=== PATIENT | female | born 2000 | race Asian ===

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

== ENCOUNTER 2018-01-30 03:53 | Emergency (ER) | payer OTHER ==
--- NOTE | 2018-01-30 03:58 | ED Physician Documentation ---
PD HPI FEMALE - Stated complaint Stated Complaint: FEMALE - History obtained from History obtained from: Patient - History of Present Illness Timing - onset: How many hours ago (1) Timing - details: Abrupt onset Associated symptoms: Vaginal pain. 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 Denies h/o similar symptoms. Review of Systems Constitutional: denies: Fever GI: reports: Reviewed and negative : denies: Dysuria, Frequency, Discharge, Vaginal bleeding Musculoskeletal: denies: Back pain PD PAST MEDICAL HISTORY - Past Medical History Past Medical History: No - Past Surgical History Past Surgical History: Yes HEENT: Tonsil/Adenoidectomy - Present Medications Home Medications: Ambulatory Orders Medication Instructions Recorded Confirmed Nitrofurantoin [Macrobid] 100 mg PO BID #9 capsule 01/30/18 Phenazopyridine [Pyridium] 200 mg PO TID 3 Days tablet 01/30/18 - Allergies Allergies/Adverse Reactions: Allergies Allergy/AdvReac Type Severity Reaction Status Date / Time No Known Drug Allergies Allergy Verified 01/30/18 04:12 - Social History Does the pt smoke?: No Smoking Status: Never smoker Does the pt drink ETOH?: No Does the pt have substance abuse?: No - Immunizations Immunizations are current?: Yes - POLST Patient has POLST: No PD ED PE NORMAL - Vitals Vital signs reviewed: Yes - General General: Alert and oriented X 3, No acute distress, Well developed/nourished - Abdomen Abdomen: Soft, Non tender - Back Back: No CVA TTP Results - Vitals Vitals: Vital Signs - 24 hr 01/30/18 04:00 Temperature 35.9 C L Heart Rate 119 H Respiratory 16 Rate Blood Pressure 135/85 H O2 Saturation 98 Oxygen O2 Source Room air - Labs Labs: Laboratory Tests 01/30/18 04:00 Urine Color YELLOW Urine Clarity HAZY Urine pH 6.0 Ur Specific [place] >=1.030 H Urine Protein NEGATIVE Urine Glucose (UA) NEGATIVE Urine Ketones NEGATIVE Urine Occult Blood SMALL H Urine Nitrite POSITIVE H Urine Bilirubin NEGATIVE Urine Urobilinogen 0.2 (NORMAL) Ur Leukocyte Esterase SMALL H Urine RBC 0-5 Urine WBC >25 H Ur Squamous Epith Cells FEW Squamous Urine Bacteria Many H Ur Microscopic Review INDICATED Urine Culture Comments INDICATED Urine HCG, Qual NEGATIVE PD MEDICAL DECISION MAKING - ED course Complexity details: considered differential, d/w patient - Sepsis Event Vital Signs: Vital Signs - 24 hr 01/30/18 04:00 Temperature 35.9 C L Heart Rate 119 H Respiratory 16 Rate Blood Pressure 135/85 H O2 Saturation 98 Oxygen O2 Source Room air Departure - Departure Disposition: Home, Self Care Clinical Impression: Urinary tract infection Condition: Good Instructions: ED UTI Cystitis Female Follow-Up: MONTY ANDERSON [Primary Care Provider] - (3-4 days if not improving) Prescriptions: Nitrofurantoin [Macrobid] 100 mg PO BID #9 capsule Phenazopyridine [Pyridium] 200 mg PO TID 3 Days tablet Discharge Date/Time: 01/30/18 05:03
[2018-01-30 04:04] VITALS: BP 135/85
[2018-01-30 04:16] LABS: BILIRUBIN,URINE NEGATIVE (NEGATIVE); GLUCOSE, URINE (UA) NEGATIVE (NEGATIVE); KETONES,URINE (UA) NEGATIVE (NEGATIVE); LEUKOCYTE ESTERASE, URINE SMALL (NEGATIVE); NITRITE,URINE POSITIVE (NEGATIVE); OCCULT BLOOD,URINE SMALL (NEGATIVE); PROTEIN,URINE NEGATIVE (NEGATIVE); UROBILINOGEN,URINE 0.2 (NORMAL) E.U./dL (NORMAL)
[2018-01-30 04:21] LABS: CLARITY,URINE HAZY (CLEAR); HCG UR QUAL NEGATIVE
[2018-01-30 04:26] LABS: BACTERIA,URINE Many /HPF (None Seen); RBC,URINE 0-5 /HPF (0-5); SQUAMOUS EPITHELIAL CELL,UR FEW Squamous (<= Few)
[2018-01-30] MEDS ORDERED: PHENAZOPYRIDINE 100 MG TABLET PO STA (04:52)
[2018-01-30] MEDS ORDERED: NITROFURANTOIN MACRO 100 MG CAPSULE PO STA (04:52)
== END 2018-01-30 05:03 | disposition home or self-care (01) ==
LOC: ED 03:53
DX: N39.0 Urinary tract infection, site not specified (principal)
CPT/HCPCS: 81001; 81025; 87077; 87086; 87181; 99283; A9270; 81003

== ENCOUNTER 2018-07-04 21:47 | Emergency (ER) | payer OTHER ==
[2018-07-04 21:54] VITALS: BP 120/80
[2018-07-04] MEDS ORDERED: DOXYCYCLINE 100 MG TABLET PO STA (22:20)
[2018-07-04] MEDS ORDERED: guaiFENesin/CODEINE 5 ML UDC PO STA (22:20)
--- NOTE | 2018-07-04 22:22 | ED Physician Documentation ---
PD HPI URI - Stated complaint Stated Complaint: COUGH/SORIANO/BLURRED VISION - Chief complaint Chief Complaint: Resp - History obtained from History obtained from: Patient - History of Present Illness Timing - onset: Other (She was sick for about 3 days about a week ago with cough cold and runny nose. She was improving but has taken a turn for the worse after over the last 24 hours with cough productive of green sputum with some blood and some shortness of breath. She is coughing so hard that her head hurts and she gets blurry vision when she is coughing but now when she is not coughing. No possibility of . No recent travel. 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 Psych: Panic attacks - Past Surgical History Past Surgical History: Yes HEENT: Tonsil/Adenoidectomy - Present Medications Home Medications: Ambulatory Orders Medication Instructions Recorded Confirmed Nitrofurantoin [Macrobid] 100 mg PO BID #9 capsule 01/30/18 Phenazopyridine [Pyridium] 200 mg PO TID 3 Days tablet 01/30/18 Doxycycline Hyclate 100 mg PO BID #14 capsule 07/04/18 guaiFENesin/CODEINE [Robitussin AC] 5 - 10 ml PO Q6H PRN #120 ml 07/04/18 - Allergies Allergies/Adverse Reactions: Allergies Allergy/AdvReac Type Severity Reaction Status Date / Time No Known Drug Allergies Allergy Verified 07/04/18 21:54 - Social History Does the pt smoke?: No Smoking Status: Never smoker Does the pt drink ETOH?: Yes Does the pt have substance abuse?: No - Immunizations Immunizations are current?: Yes - POLST Patient has POLST: No PD ED PE NORMAL - Vitals Vital signs reviewed: Yes - General General: Alert and oriented X 3, No acute distress - HEENT HEENT: Ears normal, Pharynx benign - Neck Neck: Supple, no meningeal sign, No bony TTP - Cardiac Cardiac: RRR, No murmur - Respiratory Respiratory: Other (Diminished at the bases without rhonchi or other focal findings.) - Abdomen Abdomen: Soft, Non tender - Derm Derm: No rash - Extremities Extremities: No edema, No calf tenderness / cord - Neuro Neuro: Alert and oriented X 3, Normal speech Results - Vitals Vitals: Vital Signs - 24 hr 07/04/18 21:51 Temperature 36.9 C Heart Rate 97 Respiratory 16 Rate Blood Pressure 120/80 O2 Saturation 98 Oxygen O2 Source Room air PD MEDICAL DECISION MAKING - ED course ED course: This is a 17-year-old with bronchitis and a story Worrisome for "double sickening" and as such she is treated with antibiotics. Departure - Departure Disposition: Home, Self Care Clinical Impression: Bronchitis Condition: Good Record reviewed to determine appropriate education?: Yes Instructions: ED Upper Resp Infec Abx Tx Prescriptions: Doxycycline Hyclate 100 mg PO BID #14 capsule guaiFENesin/CODEINE [Robitussin AC] 5 - 10 ml PO Q6H PRN #120 ml PRN Reason: Cough Comments: Call your doctor to arrange a follow-up appointment, make the next available appointment. In the interim, return anytime if worse or if new symptoms develop. Forms: Activity restrictions
== END 2018-07-04 22:28 | disposition home or self-care (01) ==
LOC: ED 21:47
DX: J40 Bronchitis, not specified as acute or chronic (principal)
CPT/HCPCS: 99283; A9270

== ENCOUNTER 2018-10-22 22:56 | Emergency (ER) | payer OTHER ==
--- NOTE | 2018-10-22 23:53 | ED Physician Documentation ---
PD HPI NVD - Stated complaint Stated Complaint: VOMITING BLOOD - Chief complaint Chief Complaint: Abd Pain - History obtained from History obtained from: Patient - History of Present Illness Timing - onset: How many days ago (5) Timing - details: Gradual onset, Intermittant Pain level max: 0 Pain level now: 0 Associated symptoms: No: Fever, Abdominal pain Improved by: Other (nothing) Worsened by: Other (no exacerbating factors) Similar symptoms before: Has not had sx before - Additonal information Additional information: rhinorrhea, generalized myalgias x 5 days. nausea with vomiting 2 days ago and again tonight. Review of Systems Constitutional: reports: Myalgias. denies: Fever, Chills, Sweats Nose: reports: Rhinorrhea / runny nose. denies: Congestion Throat: reports: Sore throat Respiratory: reports: Reviewed and negative GI: reports: Nausea (resolved), Vomiting. 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 Psych: Panic attacks - Past Surgical History Past Surgical History: Yes HEENT: Tonsil/Adenoidectomy - Present Medications Home Medications: Ambulatory Orders Medication Instructions Recorded Confirmed No Known Home Medications 10/22/18 10/22/18 - Allergies Allergies/Adverse Reactions: Allergies Allergy/AdvReac Type Severity Reaction Status Date / Time No Known Drug Allergies Allergy Verified 10/22/18 23:07 - Social History Does the pt smoke?: No Smoking Status: Never smoker Does the pt drink ETOH?: Yes Does the pt have substance abuse?: No - Immunizations Immunizations are current?: Yes - POLST Patient has POLST: No PD ED PE NORMAL - Vitals Vital signs reviewed: Yes - General General: Alert and oriented X 3, No acute distress, Well developed/nourished - HEENT HEENT: Moist mucous membranes, Other (mild/moderate posterior oropharyngeal erythema with mild swelling (symmetric)) - Neck Neck: Supple, no meningeal sign - Cardiac Cardiac: RRR, No murmur - Respiratory Respiratory: No respiratory distress, Clear bilaterally - Abdomen Abdomen: Soft, Non tender - Derm Derm: Normal color, Warm and dry Results - Vitals Vitals: Vital Signs - 24 hr 10/22/18 10/23/18 23:00 01:28 Temperature 36.5 C Heart Rate 92 85 Respiratory 16 16 Rate Blood Pressure 110/66 97/67 O2 Saturation 97 100 Oxygen O2 Source Room air - Labs Labs: Laboratory Tests 10/23/18 00:26 Group A Strep Rapid Negative PD MEDICAL DECISION MAKING - ED course Complexity details: reviewed results, re-evaluated patient, considered differential, d/w patient ED course: Patient declined zofran, says she is no longer nauseas. She thought there may have been blood in her vomitus tonight, but she also notes she ate pizza earlier this evening. She is well-appearing, denies blood in stool/dark black stool, and has not noticed blood in previous emesis. Vital signs stable. Blood tests unlikely to indicate a specific diagnosis or treatment in this young, healthy patient with only two episodes of vomiting, one with questionable blood. Patient prefers no blood tests unless necessary. Departure - Departure Disposition: 01 Home, Self Care Clinical Impression: Vomiting, Upper respiratory infection Condition: Good Instructions: ED URI Viral, ED Nausea Vomiting Forms: Activity restrictions Discharge Date/Time: 10/23/18 01:29
[2018-10-23] MEDS ORDERED: ONDANSETRON ODT 4 MG TABLET TL STA (00:16)
[2018-10-23 01:29] VITALS: BP 97/67
== END 2018-10-23 01:29 | disposition home or self-care (01) ==
LOC: ED 22:56
DX: J06.9 Acute upper respiratory infection, unspecified (principal); R11.10 Vomiting, unspecified
CPT/HCPCS: 87070; 87430; 99283

== ENCOUNTER 2019-02-10 15:38 | Emergency (ER) | payer OTHER ==
[2019-02-10] MEDS ORDERED: SODIUM CHLORIDE 0.9% 1,000 ML IV STA (16:53)
--- NOTE | 2019-02-10 16:53 | ED Physician Documentation ---
History of Present Illness - Stated complaint Stated Complaint: FEMALE /BLEEDING - Chief complaint Chief Complaint: Abd Pain - Additonal information Additional information: This is a 18-year-old female G2, P0 who presents with abdominal cramping and vaginal bleeding. Patient states that she was late on her period, her last menstrual cycle was 01/05/2019, and yesterday she began developing some lower abdominal cramping, followed by bleeding. She has been passing large clots. She states that she went through multiple pads in an hour intially, this has slowed down somewhat. She has had a history of a miscarriage and a stillbirth at 6 months of , she has not taken a test but she states it is possible that she might be . She has some nausea but no vomiting. No fever. Review of Systems Constitutional: denies: Fever Cardiac: denies: Chest pain / pressure Respiratory: denies: Dyspnea GI: reports: Abdominal Pain : reports: Vaginal bleeding. 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 Psych: Panic attacks - Past Surgical History Past Surgical History: Yes HEENT: Tonsil/Adenoidectomy - Present Medications Home Medications: Ambulatory Orders Medication Instructions Recorded Confirmed No Known Home Medications 10/22/18 10/22/18 - Allergies Allergies/Adverse Reactions: Allergies Allergy/AdvReac Type Severity Reaction Status Date / Time No Known Drug Allergies Allergy Verified 10/22/18 23:07 - Social History Does the pt smoke?: No Smoking Status: Never smoker Does the pt drink ETOH?: Yes Does the pt have substance abuse?: No - Immunizations Immunizations are current?: Yes - POLST Patient has POLST: No PD ED PE NORMAL - Vitals Vital signs reviewed: Yes - General General: Alert and oriented X 3 - HEENT HEENT: PERRL - Neck Neck: Supple, no meningeal sign - Cardiac Cardiac: RRR - Respiratory Respiratory: Clear bilaterally - Abdomen Abdomen: Soft, Other (Mild tenderness to palpation across the lower abdomen. No upper quadrant tenderness. No guarding) - Derm Derm: Warm and dry - Extremities Extremities: No deformity - Neuro Neuro: Alert and oriented X 3 - Psych Psych: Normal mood, Normal affect Results - Vitals Vitals: Vital Signs - 24 hr 02/10/19 02/10/19 02/10/19 16:02 16:43 18:54 Temperature 36.6 C Heart Rate 88 87 83 Respiratory 16 17 17 Rate Blood Pressure 129/97 H 103/67 115/83 H O2 Saturation 94 99 96 02/10/19 02/10/19 20:29 20:32 Temperature 37.2 C 37.2 C Heart Rate 80 80 Respiratory 18 18 Rate Blood Pressure 117/87 H 117/80 O2 Saturation 97 97 Oxygen O2 Source Room air - Labs Labs: Laboratory Tests 02/10/19 02/10/19 02/10/19 17:03 17:05 17:05 WBC 8.7 RBC 4.23 Hgb 12.9 Hct 37.1 MCV 87.7 MCH 30.5 MCHC 34.8 RDW 12.6 Plt Count 298 MPV 8.8 Neut # (Auto) 5.0 Lymph # (Auto) 2.8 Jay # (Auto) 0.6 Eos # (Auto) 0.2 Baso # (Auto) 0.0 Absolute Nucleated RBC 0.00 Nucleated RBC % 0.0 Sodium 141 Potassium 3.8 Chloride 107 Carbon Dioxide 24 Anion Gap 10.0 BUN 14 Creatinine 0.7 Estimated GFR (MDRD) 107 Glucose 89 Calcium 9.2 Total Bilirubin 0.3 AST 14 ALT 13 Alkaline Phosphatase 76 Total Protein 7.4 Albumin 4.0 Globulin 3.4 Albumin/Globulin Ratio 1.2 Lipase 21 L HCG, Quant < 0.60 Urine Color Urine Clarity Urine pH Ur Specific [place] Urine Protein Urine Glucose (UA) Urine Ketones Urine Occult Blood Urine Nitrite Urine Bilirubin Urine Urobilinogen Ur Leukocyte Esterase Urine RBC Urine WBC Ur Squamous Epith Cells Urine Bacteria Ur Microscopic Review Urine HCG, Qual 02/10/19 02/10/19 17:15 17:15 WBC RBC Hgb Hct MCV MCH MCHC RDW Plt Count MPV Neut # (Auto) Lymph # (Auto) Jay # (Auto) Eos # (Auto) Baso # (Auto) Absolute Nucleated RBC Nucleated RBC % Sodium Potassium Chloride Carbon Dioxide Anion Gap BUN Creatinine Estimated GFR (MDRD) Glucose Calcium Total Bilirubin AST ALT Alkaline Phosphatase Total Protein Albumin Globulin Albumin/Globulin Ratio Lipase HCG, Quant Urine Color RED/BLOODY Urine Clarity CLOUDY Urine pH 7.5 Ur Specific [place] 1.020 1.020 Urine Protein 100 H Urine Glucose (UA) NEGATIVE Urine Ketones NEGATIVE Urine Occult Blood LARGE H Urine Nitrite NEGATIVE Urine Bilirubin NEGATIVE Urine Urobilinogen 1 (NORMAL) Ur Leukocyte Esterase TRACE H Urine RBC TNTC H Urine WBC 4-5 Ur Squamous Epith Cells RARE Squamous Urine Bacteria Rare Ur Microscopic Review INDICATED Urine HCG, Qual NEGATIVE PD MEDICAL DECISION MAKING - ED course Complexity details: considered differential (Miscarriage, abnormal uterine bleeding, UTI, anemia, appendicitis, enteritis) ED course: Pt presents with heavier than normal vaginal bleeding. She is well-appearing with unremarkable vital signs and a benign abdomen. Labs are unremarkable, HCG negative, hemoglobin is normal. UA shows many RBCs consistent with her bleeding, several WBCs, equivocal for infection, though her symptoms do not suggest UTI so we will let this go to culture. Her abdominal pain is consistent with cramping, her abdomen remains benign and labs are reassuring, I doubt acute abdominal pathology. I discussed with patient that this is likely dysfunctional uterine bleeding, that she can take tylenol and ibuprofen for discomfort and if she has worsening pain, or if her bleeding is not improving, or is worsening, or if she develops lightheadedness or syncope she should return for re-evaluation. Otherwise she should follow with her PCP and an OB. Pt agreed and was discharged. VSS throughout her stay. Departure - Departure Disposition: 01 Home, Self Care Clinical Impression: Abnormal uterine bleeding Condition: Stable Instructions: Bleeding Uterine Follow-Up: Your,OB [Other] (For follow up on bleeding and abdominal cramping) Comments: You were seen today for abdominal cramping and bleeding. Your test is negative, your blood counts are good at this time. This may be a heavy or abnormal period. If you have continued heavy bleeding, passing out, lightheadedness, or worsening abdominal pain, please return for further evaluation. Otherwise please follow-up with your primary care provider and with an OB provider. Discharge Date/Time: 02/10/19 20:32
[2019-02-10 17:09] LABS: BASOPHILS % (AUTO) 0.5 %; EOSINOPHILS # (AUTO) 0.2 10^3/uL (0.0-0.7); EOSINOPHILS % (AUTO) 2.4 %; HGB - HEMOGLOBIN 12.9 g/dL (12.0-16.0); LYMPHOCYTES # (AUTO) 2.8 10^3/uL (1.5-3.5); MEAN CORPUSCULAR HEMOGLOBIN 30.5 pg (27.0-31.0); MEAN CORPUSCULAR HGB CONC 34.8 g/dL (32.0-36.0); MEAN CORPUSCULAR VOLUME 87.7 fL (81.0-99.0); MEAN PLATELET VOLUME 8.8 fL (7.9-10.8); MONOCYTES # (AUTO) 0.6 10^3/uL (0.0-1.0); MONOCYTES % (AUTO) 7.3 %; NEUTROPHILS % (AUTO) 57.5 %; PLT - PLATELET COUNT 298 10^3/uL (130-450); RED BLOOD COUNT 4.23 10^6/uL (4.20-5.40); RED CELL DISTRIBUTION WIDTH 12.6 % (12.0-15.0); WHITE BLOOD COUNT 8.7 x10^3/uL (4.8-10.8)
[2019-02-10 17:23] LABS: ALBUMIN/GLOBULIN RATIO 1.2 (1.0-2.2); BILIRUBIN,TOTAL 0.3 mg/dL (0.2-1.0); CALCIUM 9.2 mg/dL (8.5-10.3); CREATININE 0.7 mg/dL (0.4-1.0); TOTAL PROTEIN 7.4 g/dL (6.7-8.2)
[2019-02-10 17:30] LABS: BILIRUBIN,URINE NEGATIVE (NEGATIVE); GLUCOSE, URINE (UA) NEGATIVE (NEGATIVE); KETONES,URINE (UA) NEGATIVE (NEGATIVE); LEUKOCYTE ESTERASE, URINE TRACE (NEGATIVE); NITRITE,URINE NEGATIVE (NEGATIVE); OCCULT BLOOD,URINE LARGE (NEGATIVE); PH,URINE 7.5 PH (5.0-7.5); PROTEIN,URINE 100 mg/dL (NEGATIVE); UROBILINOGEN,URINE 1 (NORMAL) E.U./dL (NORMAL)
[2019-02-10 17:34] LABS: CLARITY,URINE CLOUDY (CLEAR)
[2019-02-10 17:35] LABS: HCG UR QUAL NEGATIVE
[2019-02-10 17:41] LABS: BACTERIA,URINE Rare /HPF (None Seen); RBC,URINE TNTC /HPF (0-5); SQUAMOUS EPITHELIAL CELL,UR RARE Squamous (<= Few)
[2019-02-10 20:34] VITALS: BP 117/80
== END 2019-02-10 20:32 | disposition home or self-care (01) ==
LOC: ED 15:38
DX: N93.9 Abnormal uterine and vaginal bleeding, unspecified (principal); R10.30 Lower abdominal pain, unspecified; Z32.02 Encounter for pregnancy test, result negative; Z87.59 Personal history of other complications of pregnancy, childbirth and the puerperium
CPT/HCPCS: 36415; 80053; 81001; 81003; 81025; 83690; 84702; 84703; 85025; 96360; 96361; 99282

== ENCOUNTER 2019-03-19 05:54 | Emergency (ER) | payer OTHER ==
[2019-03-19 06:05] VITALS: BP 127/82
[2019-03-19] MEDS ORDERED: ACETAMINOPHEN 325 MG TABLET PO STA (06:17)
[2019-03-19] MEDS ORDERED: ONDANSETRON ODT 4 MG TABLET TL STA (06:17)
[2019-03-19] MEDS ORDERED: IBUPROFEN 600 MG TABLET PO STA (06:17)
--- NOTE | 2019-03-19 06:18 | ED Physician Documentation ---
History of Present Illness - Stated complaint Stated Complaint: FEVER - Chief complaint Chief Complaint: Fever - Additonal information Additional information: This is a 18-year-old female presents with cough, sore throat, muscle soreness, and fever. Patient began developing a sore throat 2 days ago, She is also had a cough, and this morning she had a fever measured to 101 F on a home thermometer. She has some soreness in her neck and shoulders, and she had some nausea and vomiting this morning as well. She denies sick contacts. She has been able to drink fluids and eat. She denies any concern for , has no abdominal pain or chest pain. Review of Systems Constitutional: reports: Fever Eyes: denies: Photophobia Cardiac: denies: Chest pain / pressure Respiratory: reports: Cough. denies: Dyspnea GI: reports: Vomiting. 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 - Past Surgical History Past Surgical History: Yes HEENT: Tonsil/Adenoidectomy - Present Medications Home Medications: Ambulatory Orders Medication Instructions Recorded Confirmed Ondansetron Odt [Zofran] 4 mg TL Q6H PRN #6 tablet 03/19/19 - Allergies Allergies/Adverse Reactions: Allergies Allergy/AdvReac Type Severity Reaction Status Date / Time No Known Drug Allergies Allergy Verified 03/19/19 06:05 - Social History Does the pt smoke?: No Smoking Status: Never smoker Does the pt drink ETOH?: Yes Does the pt have substance abuse?: No - Immunizations Immunizations are current?: Yes - POLST Patient has POLST: No PD ED PE NORMAL - Vitals Vital signs reviewed: Yes - General General: Alert and oriented X 3 - HEENT HEENT: PERRL, Other (Posterior pharynx erythematous) - Neck Neck: Supple, no meningeal sign, Other (Full active ROM without issue) - Cardiac Cardiac: No murmur, Other (RRR on my exam in 90s.) - Respiratory Respiratory: Clear bilaterally - Abdomen Abdomen: Normal bowel sounds, Soft, Non tender, Non distended - Derm Derm: Warm and dry - Extremities Extremities: No deformity - Neuro Neuro: Alert and oriented X 3 - Psych Psych: Normal mood, Normal affect Results - Vitals Vitals: Vital Signs - 24 hr 03/19/19 03/19/19 06:02 06:38 Temperature 36.9 C Heart Rate 107 H Respiratory 18 17 Rate Blood Pressure 127/82 H O2 Saturation 97 Oxygen O2 Source Room air - Labs Labs: Laboratory Tests 03/19/19 06:05 Group A Strep Rapid Negative PD MEDICAL DECISION MAKING - ED course Complexity details: considered differential (URI, strep pharyngitis, mononucleosis, meningitis, dehydration, gastroenteritis) ED course: On examination patient is mildly tachycardic, but nontoxic-appearing. She has a benign abdominal exam, normal neurologic exam or signs of meningitis. Given her constellation of symptoms she appears to a viral upper respiratory infection. Rapid strep is negative, and she is only 3 days into her symptoms, making a bacterial superinfection highly unlikely. There are no signs of pneumonia on her exam today. She is non-toxic and overall well-appearing. After receiving Zofran and ibuprofen patient is feeling much improved, and her heart rate has improved to the 80s as well. She is able to tolerate p.o. without vomiting. We discussed the likely diagnosis, diagnostic uncertainty, and need for primary care follow-up. I discussed supportive care and the need for aggressive hydration. I also discussed return precautions including confusion, fever despite Tylenol and ibuprofen, difficulty breathing, or any other concerni ng symptoms. Patient agreed with this plan was discharged home. Departure - Departure Disposition: 01 Home, Self Care Clinical Impression: Upper respiratory infection Qualifiers: URI type: unspecified viral URI Qualified Code(s): J06.9 - Acute upper respiratory infection, unspecified Condition: Good Instructions: ED Upper Resp Infec No Abx Tx Follow-Up: Your,PCP [Other] - As Needed (With any continued symptoms) Prescriptions: Ondansetron Odt [Zofran] 4 mg TL Q6H PRN #6 tablet PRN Reason: Nausea / Vomiting Comments: You were seen today for muscle soreness, sore throat, fever, and cough, this appears to be a viral infection. Your strep test is negative. Please take Tylenol (650mg every 6 hours as neededfever/pain) and ibuprofen (600mg every 6 hours as needed for fever/pain) for your symptoms, you may also take Zofran for nausea if needed. If your symptoms are worsening, you ] fever despite the Tylenol and ibuprofen, confusion, or difficulty moving your neck please return to the emergency department. Otherwise please follow-up the primary care provider if your symptoms are not improving. Drink plenty of fluids and rest. Forms: Activity restrictions Discharge Date/Time: 03/19/19 08:06
== END 2019-03-19 08:06 | disposition home or self-care (01) ==
LOC: ED 05:54
DX: J06.9 Acute upper respiratory infection, unspecified (principal)
CPT/HCPCS: 87070; 87077; 87430; 99283; A9270; Q0162

== ENCOUNTER 2019-04-03 23:39 | Outpatient (CLI) | payer OTHER | END 2019-04-03 23:40 | disposition critical access hospital (66) | LOC: EMS 23:39 | PROVIDERS: ATTEND Surgery | DX: M54.2 Cervicalgia (principal); M25.511 Pain in right shoulder; Y04.8XXA Assault by other bodily force, initial encounter; Y92.009 Unspecified place in unspecified non-institutional (private) residence as the place of occurrence of the external cause | CPT/HCPCS: A0425; A0429 ==

== ENCOUNTER 2019-04-04 00:09 | Emergency (ER) | payer OTHER ==
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
[2019-04-04 03:00] VITALS: BP 114/66
== END 2019-04-04 03:00 | disposition home or self-care (01) ==
LOC: EDUNIT# → ED 00:09
DX: S20.211A Contusion of right front wall of thorax, initial encounter (principal); T71.9XXA Asphyxiation due to unspecified cause, initial encounter; Y08.89XA Assault by other specified means, initial encounter; Y92.009 Unspecified place in unspecified non-institutional (private) residence as the place of occurrence of the external cause
CPT/HCPCS: 99282; 99283

== ENCOUNTER 2020-10-08 14:12 | Emergency (ER) | payer MEDICAID, OTHER ==
[2020-10-08] MEDS ORDERED: SODIUM CHLORIDE 0.9% 1,000 ML IV STA (14:27)
--- NOTE | 2020-10-08 14:28 | ED Physician Documentation ---
History of Present Illness - Stated complaint Stated Complaint: FEMALE - Chief complaint Chief Complaint: Abd Pain - History obtained from History obtained from: Patient - Additonal information Additional information: Had an IUD placed in January of last year, she says it has been nothing but trouble ever since. Over the last 3 weeks has had increasing bleeding with some clots today and a few days worth of pelvic pain on both sides. She was reportedly syncopal in triage. 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 HEENT: None Psych: Depression, Anxiety, Panic attacks Musculoskeletal: None Derm: None - Past Surgical History Past Surgical History: Yes HEENT: Tonsil/Adenoidectomy - Present Medications Home Medications: Ambulatory Orders Medication Instructions Recorded Confirmed No Known Home Medications 04/04/19 10/08/20 - Allergies Allergies/Adverse Reactions: Allergies Allergy/AdvReac Type Severity Reaction Status Date / Time No Known Drug Allergies Allergy Verified 10/08/20 14:17 - Social History Does the pt smoke?: No Smoking Status: Never smoker Does the pt drink ETOH?: Yes Does the pt have substance abuse?: No - Immunizations Immunizations are current?: Yes - POLST Patient has POLST: No PD ED PE NORMAL - Vitals Vital signs reviewed: Yes - General General: Alert and oriented X 3, Other (Slightly slow to answer questions but alert and oriented. Not pale. Vitals are reassuring.) - HEENT HEENT: PERRL, EOMI - Neck Neck: Supple, no meningeal sign, No bony TTP - Cardiac Cardiac: RRR, No murmur - Respiratory Respiratory: No respiratory distress, Clear bilaterally - Abdomen Abdomen: Normal bowel sounds, Soft, Non tender - Female Female : Other (Pelvic exam done with Domitila RN present and chaperoning. Modest white discharge in the vault. Nontender. IUD removed at patient's request. No blood in the vault.) - Back Back: No CVA TTP, No spinal TTP - Derm Derm: Normal color, Warm and dry - Extremities Extremities: No edema, No calf tenderness / cord - Neuro Neuro: Alert and oriented X 3, Normal speech Results - Vitals Vitals: Vital Signs - 24 hr 10/08/20 10/08/20 10/08/20 14:18 14:30 15:02 Temperature 36.7 C Heart Rate 80 67 Heart Rate [ 107 H Sitting] Heart Rate [ 100 Standing] Heart Rate [ 65 Supine] Respiratory 18 12 Rate Blood Pressure 133/98 H 83/65 L Blood Pressure 144/107 H [Sitting] Blood Pressure 139/100 H [Standing] Blood Pressure 131/57 H [Supine] O2 Saturation 100 10/08/20 15:19 Temperature Heart Rate 66 Heart Rate [ Sitting] Heart Rate [ Standing] Heart Rate [ Supine] Respiratory 16 Rate Blood Pressure 104/57 L Blood Pressure [Sitting] Blood Pressure [Standing] Blood Pressure [Supine] O2 Saturation 97 Oxygen O2 Source Room air - EKG (time done) 1435 Rate: Rate (enter#) (64) Rhythm: NSR [place]: Normal Intervals: Normal CO QRS: Normal Ischemia: Normal ST segments Computer interpretation: Agree with computer - Labs Labs: Laboratory Tests 10/08/20 10/08/20 10/08/20 14:36 14:36 14:36 WBC 6.3 RBC 4.52 Hgb 14.0 Hct 39.8 MCV 88.1 MCH 31.0 MCHC 35.2 RDW 12.1 Plt Count 338 MPV 9.2 Neut # (Auto) 3.1 Lymph # (Auto) 2.5 [place] # (Auto) 0.5 Eos # (Auto) 0.2 Baso # (Auto) 0.1 Absolute Nucleated RBC 0.00 Nucleated RBC % 0.0 Sodium 136 Potassium 4.3 Chloride 103 Carbon Dioxide 23 Anion Gap 10.0 BUN 17 Creatinine 0.8 Estimated GFR (MDRD) 90 Glucose 99 Calcium 9.3 HCG, Quant Urine Color Urine Clarity Urine pH Ur Specific [place] Urine Protein Urine Glucose (UA) Urine Ketones Urine Occult Blood Urine Nitrite Urine Bilirubin Urine Urobilinogen Ur Leukocyte Esterase Urine RBC Urine WBC Ur Squamous Epith Cells Urine Bacteria Ur Microscopic Review Urine Culture Comments Urine HCG, Qual Blood Type A POSITIVE Antibody Screen NEGATIVE 10/08/20 10/08/20 14:36 15:10 WBC RBC Hgb Hct MCV MCH MCHC RDW Plt Count MPV Neut # (Auto) Lymph # (Auto) [place] # (Auto) Eos # (Auto) Baso # (Auto) Absolute Nucleated RBC Nucleated RBC % Sodium Potassium Chloride Carbon Dioxide Anion Gap BUN Creatinine Estimated GFR (MDRD) Glucose Calcium HCG, Quant < 0.60 Urine Color YELLOW Urine Clarity CLEAR Urine pH 6.5 Ur Specific [place] <=1.005 Urine Protein NEGATIVE Urine Glucose (UA) NEGATIVE Urine Ketones NEGATIVE Urine Occult Blood NEGATIVE Urine Nitrite NEGATIVE Urine Bilirubin NEGATIVE Urine Urobilinogen 0.2 (NORMAL) Ur Leukocyte Esterase TRACE H Urine RBC 0-5 Urine WBC 6-10 H Ur Squamous Epith Cells FEW Squamous Urine Bacteria Rare Ur Microscopic Review INDICATED Urine Culture Comments INDICATED Urine HCG, Qual NEGATIVE Blood Type Antibody Screen PD MEDICAL DECISION MAKING - ED course ED course: 20-year-old woman presents with pelvic pain, near syncope, and complaints about her IUD. Her labs are unremarkable. She had modestly positive orthostatics. She very much wanted to have her IUD out. test was negative. Departure - Departure Disposition: 01 Home, Self Care Clinical Impression: Abnormal uterine bleeding Condition: Good Record reviewed to determine appropriate education?: Yes Instructions: ED Pelvic Pain [facility] Comments: You were seen today for pelvic pain, history of vaginal bleeding. That said there was no blood on exam today. Your IUD was removed At your request and you should follow-up with primary care for consideration of alternative control. Return for new or worsening symptoms.
[2020-10-08 14:44] LABS: BASOPHILS # (AUTO) 0.1 10^3/uL (0.0-0.1); BASOPHILS % (AUTO) 0.9 %; EOSINOPHILS # (AUTO) 0.2 10^3/uL (0.0-0.7); EOSINOPHILS % (AUTO) 3.2 %; HCT - HEMATOCRIT 39.8 % (37.0-47.0); LYMPHOCYTES # (AUTO) 2.5 10^3/uL (1.5-3.5); LYMPHOCYTES % (AUTO) 38.8 %; MEAN CORPUSCULAR HGB CONC 35.2 g/dL (32.0-36.0); MEAN CORPUSCULAR VOLUME 88.1 fL (81.0-99.0); MEAN PLATELET VOLUME 9.2 fL (7.9-10.8); MONOCYTES # (AUTO) 0.5 10^3/uL (0.0-1.0); MONOCYTES % (AUTO) 7.6 %; NEUTROPHILS # (AUTO) 3.1 10^3/uL (1.5-6.6); NEUTROPHILS % (AUTO) 49.3 %; PLT - PLATELET COUNT 338 10^3/uL (130-450); RED BLOOD COUNT 4.52 10^6/uL (4.20-5.40); RED CELL DISTRIBUTION WIDTH 12.1 % (12.0-15.0); WHITE BLOOD COUNT 6.3 x10^3/uL (4.8-10.8)
[2020-10-08 14:58] LABS: CALCIUM 9.3 mg/dL (8.5-10.3); CREATININE 0.8 mg/dL (0.4-1.0); POTASSIUM 4.3 mmol/L (3.5-5.0)
--- OUTSIDE RECORDS SUMMARY | 2020-10-08 15:04 | EXTERNAL MEDICAL SUMMARY RPT | Continuity of Care Document ---
:2000 Demographics Phone Unavailable Preferred Language Unknown Marital Status Unknown Jainism Affiliation Unknown Race Unknown Ethnic Group Unknown Author Organization [facility] Address [address] [phone] Phone Social History date description facility [id number]
[2020-10-08 15:22] LABS: BILIRUBIN,URINE NEGATIVE (NEGATIVE); GLUCOSE, URINE (UA) NEGATIVE (NEGATIVE); KETONES,URINE (UA) NEGATIVE (NEGATIVE); LEUKOCYTE ESTERASE, URINE TRACE (NEGATIVE); NITRITE,URINE NEGATIVE (NEGATIVE); OCCULT BLOOD,URINE NEGATIVE (NEGATIVE); PH,URINE 6.5 PH (5.0-7.5); PROTEIN,URINE NEGATIVE (NEGATIVE); UROBILINOGEN,URINE 0.2 (NORMAL) E.U./dL (NORMAL)
[2020-10-08 15:24] LABS: CLARITY,URINE CLEAR (CLEAR); HCG UR QUAL NEGATIVE
[2020-10-08 15:28] LABS: BACTERIA,URINE Rare /HPF (None Seen); RBC,URINE 0-5 /HPF (0-5); SQUAMOUS EPITHELIAL CELL,UR FEW Squamous (<= Few)
[2020-10-08 16:07] VITALS: BP 111/71
[2020-10-08 19:18] LABS: CHLAMYDIA TRACHOMATIS DNA NEGATIVE (NEGATIVE); NEISSERIA GONORRHOEAE DNA NEGATIVE (NEGATIVE); TRICHOMONAS VAGINALIS DNA NEGATIVE (NEGATIVE)
== END 2020-10-08 16:15 | disposition home or self-care (01) ==
LOC: ED 14:12
DX: R10.2 Pelvic and perineal pain (principal); N93.9 Abnormal uterine and vaginal bleeding, unspecified; R55 Syncope and collapse; Z30.432 Encounter for removal of intrauterine contraceptive device
CPT/HCPCS: 36415; 80048; 81001; 81003; 81025; 84702; 85025; 86850; 86900; 86901; 87086; 87181; 87491; 87591; 87661; 93005; 99283; 99284

== ENCOUNTER 2021-06-18 03:33 | Emergency (ER) | payer MEDICAID ==
[2021-06-18 04:39] VITALS: BP 121/75
[2021-06-18 04:56] LABS: BILIRUBIN,URINE NEGATIVE (NEGATIVE); CLARITY,URINE CLEAR (CLEAR); GLUCOSE, URINE (UA) NEGATIVE (NEGATIVE); KETONES,URINE (UA) NEGATIVE (NEGATIVE); LEUKOCYTE ESTERASE, URINE TRACE (NEGATIVE); NITRITE,URINE NEGATIVE (NEGATIVE); OCCULT BLOOD,URINE NEGATIVE (NEGATIVE); PROTEIN,URINE NEGATIVE (NEGATIVE); UROBILINOGEN,URINE 0.2 (NORMAL) E.U./dL (NORMAL)
[2021-06-18 04:58] LABS: BASOPHILS # (AUTO) 0.1 10^3/uL (0.0-0.1); BASOPHILS % (AUTO) 0.6 %; EOSINOPHILS # (AUTO) 0.2 10^3/uL (0.0-0.7); HCT - HEMATOCRIT 39.2 % (37.0-47.0); HGB - HEMOGLOBIN 13.4 g/dL (12.0-16.0); LYMPHOCYTES # (AUTO) 3.8 10^3/uL (1.5-3.5); LYMPHOCYTES % (AUTO) 33.4 %; MEAN CORPUSCULAR HGB CONC 34.2 g/dL (32.0-36.0); MEAN CORPUSCULAR VOLUME 90.7 fL (81.0-99.0); MEAN PLATELET VOLUME 9.2 fL (7.9-10.8); MONOCYTES # (AUTO) 0.9 10^3/uL (0.0-1.0); MONOCYTES % (AUTO) 7.6 %; NEUTROPHILS # (AUTO) 6.3 10^3/uL (1.5-6.6); NEUTROPHILS % (AUTO) 55.8 %; PLT - PLATELET COUNT 313 10^3/uL (130-450); RED BLOOD COUNT 4.32 10^6/uL (4.20-5.40); RED CELL DISTRIBUTION WIDTH 12.7 % (12.0-15.0); WHITE BLOOD COUNT 11.2 x10^3/uL (4.8-10.8)
[2021-06-18 05:05] LABS: BACTERIA,URINE Rare /HPF (None Seen); RBC,URINE None Seen /HPF (0-5); SQUAMOUS EPITHELIAL CELL,UR FEW Squamous (<= Few); WBC,URINE 0-3 /HPF (0-5)
[2021-06-18 05:07] LABS: ALBUMIN/GLOBULIN RATIO 1.1 (1.0-2.2); BILIRUBIN,TOTAL 0.3 mg/dL (0.2-1.0); CALCIUM 8.8 mg/dL (8.5-10.3); CREATININE 0.6 mg/dL (0.4-1.0); POTASSIUM 3.8 mmol/L (3.5-5.0); TOTAL PROTEIN 7.7 g/dL (6.7-8.2)
[2021-06-18] MEDS ORDERED: cephALEXin 250 MG CAPSULE PO STA (05:39)
--- NOTE | 2021-06-18 05:42 | ED Physician Documentation ---
History of Present Illness - Stated complaint Stated Complaint: CRAMPING - Chief complaint Chief Complaint: Abd Pain - History obtained from History obtained from: Patient - Additonal information Additional information: 20yF with lmp nov 20 p/w cramping abdominal pain radiating from suprapubic region to back tonight. currently mild, intermittent, without exacerbating or relieving factors. denies dysuria, hematuria, increased frequency. denies vaginal bleeding. 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), Other : None HEENT: None Psych: Depression, Anxiety, Panic attacks Musculoskeletal: None Derm: None Other Past Medical History: 2016 [facility] ed - Past Surgical History Past Surgical History: Yes Ortho: Carpal Tunnel surgery HEENT: Tonsil/Adenoidectomy - Present Medications Home Medications: Ambulatory Orders Medication Instructions Recorded Confirmed Cephalexin [Keflex] 750 mg PO BID #10 tab 06/18/21 - Allergies Allergies/Adverse Reactions: Allergies Allergy/AdvReac Type Severity Reaction Status Date / Time No Known Drug Allergies Allergy Verified 10/08/20 14:17 - Social History Does the pt smoke?: No Smoking Status: Never smoker Does the pt drink ETOH?: Yes ETOH Use: Wine, Beer, Liquor Does the pt have substance abuse?: No - Immunizations Immunizations are current?: No - POLST Patient has POLST: No PD ED PE NORMAL - Vitals Vital signs reviewed: Yes - General General: Alert and oriented X 3, No acute distress, Well developed/nourished - HEENT HEENT: Atraumatic, PERRL, EOMI - Neck Neck: Supple, no meningeal sign - Cardiac Cardiac: RRR - Respiratory Respiratory: No respiratory distress, Clear bilaterally - Abdomen Abdomen: Non tender, Non distended, Other (discomfort to suprapubic palpation.) - Back Back: No CVA TTP - Derm Derm: Normal color, Warm and dry - Extremities Extremities: No deformity - Neuro Neuro: Alert and oriented X 3 - Psych Psych: Normal mood, Normal affect Results - Vitals Vitals: Vital Signs - 24 hr 06/18/21 04:29 Temperature 36.9 C Heart Rate 89 Respiratory 14 Rate Blood Pressure 121/75 O2 Saturation 98 Oxygen O2 Source Room air - Labs Labs: Laboratory Tests 06/18/21 06/18/21 06/18/21 04:30 04:30 04:30 WBC 11.2 H RBC 4.32 Hgb 13.4 Hct 39.2 MCV 90.7 MCH 31.0 MCHC 34.2 RDW 12.7 Plt Count 313 MPV 9.2 Neut # (Auto) 6.3 Lymph # (Auto) 3.8 H Banks # (Auto) 0.9 Eos # (Auto) 0.2 Baso # (Auto) 0.1 Absolute Nucleated RBC 0.00 Nucleated RBC % 0.0 Sodium 136 Potassium 3.8 Chloride 103 Carbon Dioxide 23 Anion Gap 10.0 BUN 16 Creatinine 0.6 Estimated GFR (MDRD) 125 Glucose 97 Calcium 8.8 Total Bilirubin 0.3 AST 20 ALT 24 Alkaline Phosphatase 64 Total Protein 7.7 Albumin 4.0 Globulin 3.7 Albumin/Globulin Ratio 1.1 Lipase 26 Urine Color YELLOW Urine Clarity CLEAR Urine pH 6.0 Ur Specific Hatch 1.010 Urine Protein NEGATIVE Urine Glucose (UA) NEGATIVE Urine Ketones NEGATIVE Urine Occult Blood NEGATIVE Urine Nitrite NEGATIVE Urine Bilirubin NEGATIVE Urine Urobilinogen 0.2 (NORMAL) Ur Leukocyte Esterase TRACE H Urine RBC None Seen Urine WBC 0-3 Ur Squamous Epith Cells FEW Squamous Urine Bacteria Rare Ur Microscopic Review INDICATED Urine Culture Comments INDICATED PD MEDICAL DECISION MAKING - ED course ED course: 20yF p/w abdominal cramping, found to have possible uti on u/a. antibiotics provided, return precautions given. 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 Departure - Departure Disposition: 01 Home, Self Care Clinical Impression: UTI (urinary tract infection), Abdominal cramping Condition: Good Instructions: ED UTI Cystitis Female Prescriptions: Cephalexin [Keflex] 750 mg PO BID #10 tab Comments: You were seen in the emergency department for evaluation of abdominal cramping. You appear to have a UTI and I am treating you with antibiotics. 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
[2021-06-18 06:17] LABS: HCG UR QUAL POSITIVE
== END 2021-06-18 05:56 | disposition home or self-care (01) ==
LOC: ED 03:33
DX: N39.0 Urinary tract infection, site not specified (principal)
CPT/HCPCS: 36415; 80053; 81001; 81025; 83690; 85025; 87086; 99283; A9270; 81003

== ENCOUNTER 2021-07-20 10:12 | Outpatient (CLI) | payer MEDICAID ==
--- NOTE | 2021-07-20 13:34 | Ultrasound Report ---
PROCEDURE: OB First Trimester w/TV INDICATIONS: SUPERVISION HIGH RISK OUTSIDE/PRIOR DATING DATA: Last menstrual period (LMP): 05/08/2021. LMP-based estimated date of delivery (ANGEL): 02/12/2022. First dating scan (date and location): 07/20/2021. Estimated date of delivery (ANGEL) from first dating scan: Not calculated. TECHNIQUE: Real-time scanning was performed of the fetus and maternal pelvic organs, with image documentation. Endovaginal scanning was also performed to better visualize the fetus and maternal ovaries. COMPARISON: None FINDINGS: There is a very curly intrauterine . Based on mean sac diameter, the gestation is 6 weeks 0 days. There is a small crown-rump length without a heartbeat. Based on crown-rump length, gestational 6 weeks 3 days Embryo: [place]-rump length measures 0.6 cm, 6 weeks 3 days. Heart rate: Not identified There is a subchorionic hemorrhage present measuring 4.2 x 0.9 x 2.9 cm. Measurement variability in dating: +/- 4 weeks by LMP, +/- 7 days by mean sac diameter (use before 6 weeks gestation if crown-rump length not able to be measured), +/- 5 days by crown-rump length (6-12 weeks gestation). Maternal organs: Ovaries unremarkable. IMPRESSION: Very early intrauterine with a crown-rump length measuring 6 weeks 3 days without hea rt tones noted. It is possible, at this very early stage to have a crown-rump length without a visibl e heartbeat. Therefore, recommend correlation with serial beta hCG levels and possible ultrasound in 1-2 weeks. Reviewed by: Tony Dickson MD on 07/20/2021 1:33 PM PST Approved by: Tony Dickson MD on 07/20/2021 1:33 PM PST Station ID: [id number]
== END 2021-07-20 10:13 | disposition home or self-care (01) ==
LOC: DI 10:12
PROVIDERS: ATTEND Obstetrics & Gynecology
DX: O09.91 Supervision of high risk pregnancy, unspecified, first trimester (principal); Z3A.01 Less than 8 weeks gestation of pregnancy

== ENCOUNTER 2021-07-20 11:03 | Outpatient (CLI) | payer MEDICAID ==
[2021-07-20 11:29] LABS: BASOPHILS % (AUTO) 0.4 %; EOSINOPHILS # (AUTO) 0.3 10^3/uL (0.0-0.7); EOSINOPHILS % (AUTO) 3.1 %; HCT - HEMATOCRIT 39.5 % (37.0-47.0); HGB - HEMOGLOBIN 13.8 g/dL (12.0-16.0); LYMPHOCYTES # (AUTO) 2.2 10^3/uL (1.5-3.5); LYMPHOCYTES % (AUTO) 23.4 %; MEAN CORPUSCULAR HEMOGLOBIN 30.9 pg (27.0-31.0); MEAN CORPUSCULAR HGB CONC 34.9 g/dL (32.0-36.0); MEAN CORPUSCULAR VOLUME 88.6 fL (81.0-99.0); MEAN PLATELET VOLUME 8.8 fL (7.9-10.8); MONOCYTES # (AUTO) 0.5 10^3/uL (0.0-1.0); MONOCYTES % (AUTO) 5.6 %; NEUTROPHILS # (AUTO) 6.3 10^3/uL (1.5-6.6); NEUTROPHILS % (AUTO) 67.2 %; PLT - PLATELET COUNT 350 10^3/uL (130-450); RED BLOOD COUNT 4.46 10^6/uL (4.20-5.40); RED CELL DISTRIBUTION WIDTH 11.9 % (12.0-15.0); WHITE BLOOD COUNT 9.4 x10^3/uL (4.8-10.8)
[2021-07-20 11:30] LABS: BILIRUBIN,URINE NEGATIVE (NEGATIVE); GLUCOSE, URINE (UA) NEGATIVE (NEGATIVE); KETONES,URINE (UA) NEGATIVE (NEGATIVE); LEUKOCYTE ESTERASE, URINE NEGATIVE (NEGATIVE); NITRITE,URINE NEGATIVE (NEGATIVE); OCCULT BLOOD,URINE SMALL (NEGATIVE); PROTEIN,URINE NEGATIVE (NEGATIVE); UROBILINOGEN,URINE 0.2 (NORMAL) E.U./dL (NORMAL)
[2021-07-20 11:31] LABS: CLARITY,URINE CLEAR (CLEAR)
[2021-07-20 12:21] LABS: BACTERIA,URINE Few /HPF (None Seen); RBC,URINE 0-5 /HPF (0-5); SQUAMOUS EPITHELIAL CELL,UR NONE SEEN (<= Few); WBC,URINE 0-3 /HPF (0-5)
[2021-07-21 10:01] LABS: HEPATITIS B SURFACE ANTIGEN NON-REACTIVE (NON-REACTIVE)
[2021-07-21 12:11] LABS: HEPATITIS C ANTIBODY NON-REACTIVE (NON-REACTIVE)
[2021-07-23 15:46] LABS: HIV AG/AB 4TH GEN NON-REACTIVE (NON-REACTIVE)
== END 2021-07-20 11:04 | disposition home or self-care (01) ==
LOC: LAB 11:03
PROVIDERS: ATTEND Obstetrics & Gynecology
DX: O09.90 Supervision of high risk pregnancy, unspecified, unspecified trimester (principal); Z36.89 Encounter for other specified antenatal screening
CPT/HCPCS: 36415; 81001; 85025; 86592; 86762; 86787; 86803; 86850; 86900; 86901; 87086; 87340; 87389

== ENCOUNTER 2021-07-26 06:18 | Day surgery (SDC) | payer MEDICAID ==
[2021-07-26] MEDS ORDERED: DOXYCYCLINE 100 MG TABLET PO ONE (06:21)
[2021-07-26] MEDS ORDERED: CELECOXIB 100 MG CAPSULE PO ONE (06:23)
[2021-07-26] MEDS ORDERED: GABAPENTIN 400 MG CAPSULE ONE (06:23)
[2021-07-26] MEDS ORDERED: LACTATED RINGERS 1,000 ML IV ONE (06:32)
[2021-07-26 07:16] LABS: HCT - HEMATOCRIT 38.1 % (37.0-47.0); HGB - HEMOGLOBIN 13.3 g/dL (12.0-16.0); MEAN CORPUSCULAR HEMOGLOBIN 30.6 pg (27.0-31.0); MEAN CORPUSCULAR HGB CONC 34.9 g/dL (32.0-36.0); MEAN CORPUSCULAR VOLUME 87.6 fL (81.0-99.0); RED BLOOD COUNT 4.35 10^6/uL (4.20-5.40); RED CELL DISTRIBUTION WIDTH 11.8 % (12.0-15.0); WHITE BLOOD COUNT 10.4 x10^3/uL (4.8-10.8)
[2021-07-26] MEDS ORDERED: LIDOCAINE 2%-EPI 1:100000 20 ML MDV ONE (07:21)
[2021-07-26] MEDS ORDERED: ACETAMINOPHEN 500 MG TABLET PO ONE (07:24)
[2021-07-26] MEDS ORDERED: LIDOCAINE-MPF 2% 5 ML VIAL ONE (07:32)
[2021-07-26] MEDS ORDERED: fentaNYL 100 MCG/2 ML VIAL ONE (07:32)
[2021-07-26] MEDS ORDERED: MIDAZOLAM 2 MG/2 ML VIAL ONE ×2 (07:32→07:45)
[2021-07-26] MEDS ORDERED: PROPOFOL 200 MG/20 ML VIAL IVP ONE (07:32)
--- NOTE | 2021-07-26 07:39 | ANESTHESIA ---
Pre-Anesthesia VS, & Labs - Diagnosis missed AB - Procedure D & C, hysteroscopy Vital Signs: Temp Pulse Resp BP Pulse Ox 36.6 C 80 16 115/89 H 97 07/26/21 06:34 07/26/21 06:34 07/26/21 06:34 07/26/21 06:34 07/26/21 06:34 Height: 5 ft 5 in Weight (kg): 128 kg Body Mass Index: 46.9 BMI Classification: Morbidly Obese - NPO >8 hours - Is Patient ?: No - Lab Results Current Lab Results: Laboratory Tests 07/26/21 06:57: WBC 10.4, RBC 4.35, Hgb 13.3, Hct 38.1, MCV 87.6, MCH 30.6, MCHC 34.9, RDW 11.8 L, Plt Count 347, MPV 9.0 07/26/21 06:56: POC Whole Bld Glucose 93 Fish Bones: 07/26/21 06:57 Home Medications and Allergies Home Medications: Ambulatory Orders Albuterol 1 puffs PO DAILY 07/25/21 Albuterol 1 puffs PO DAILY 07/25/21 Allergies/Adverse Reactions: Allergies Allergy/AdvReac Type Severity Reaction Status Date / Time Sulfa (Sulfonamide AdvReac Unknown Verified 07/25/21 14:23 Antibiotics) Anes History & Medical History - Anesthetic History Anesthesia Complications: reports: No previous complications - Medical History Cardiovascular: reports: Arrhythmia (states heart skips beat per patient), Other Pulmonary: reports: Asthma, Pneumonia Gastrointestinal: reports: None Urinary: reports: None Neuro: reports: None Musculoskeletal: reports: Chronic back pain Endocrine/Autoimmune: reports: None Blood Disorders: reports: None Skin: reports: None Smoking Status: Never smoker History of Cancer?: No - Surgical History Eyes Ears Nose Throat (EENT): reports: Tonsil/Adenoidectomy Orthopedic: reports: Carpal Tunnel surgery Exam General: Alert, Oriented x3 Dental: WNL Mouth Opening: Greater than 4 Fingerbreadths Mallampati classification: II Thyromental Distance: greater than 6 cm Respiratory: Lungs clear Cardiovascular: Regular rate, Normal S1, Normal S2 Plan Anesthesia Type: General Consent for Procedure(s) Verified and Reviewed: Yes Code Status: Attempt Resuscitation ASA classification: 2-Mild systemic disease Is this case an emergency?: No
[2021-07-26] MEDS ORDERED: LIDOCAINE 2%-EPI 1:100000 20 ML MDV SUBQ ONE (08:00)
[2021-07-26] MEDS ORDERED: ONDANSETRON 4 MG/2 ML VIAL ONE (08:03)
[2021-07-26] MEDS ORDERED: DEXAMETHASONE 4 MG/ML VIAL ONE (08:03)
[2021-07-26] MEDS ORDERED: LACTATED RINGERS 250 ML IV ONE (08:19)
--- NOTE | 2021-07-26 08:24 | OPERATIVE REPORT ---
Operative Report - General Procedure Date: 07/26/21 Planned Procedure: Suction dilation and curettage Pre-Op Diagnosis: Inevitable Procedure Performed: Suction dilation and curettage Post Op Diagnosis: Same - Procedure Note Primary Surgeon: Clayton Paz MD Anesthesia Provider: Cristóbal Celaya CRNA Anesthesia Technique: General LMA Pathology: Products of conception IV Fluids (mL): 800 Estimated Blood Loss (mL): 250 Urine Output (mL): 250 Complications: None - Other Other Information/Narrative: Patient was a 21-year-old -1-0-0 who is 11 weeks by LMP, but 6 weeks on an ultrasound last week with no heartbeat. She had been cramping and bleeding for some time and we discussed that although there is a strong likelihood of her having a miscarriage, at 6 mm, it was not diagnostic. Patient returned the following week with further bleeding and cramping and was examined and had found to have a mildly dilated cervix with clots, but no gestational sac visible. We discussed expectant, medical, surgical management and after counseling of the risks and benefits she desired surgical management for an inevitable . She was advised of the risk and benefits of bleeding, infection, uterine perforation, failure to remove all products of conception. Suction D&C Patient was placed in the dorsal high lithotomy position with yellowfin stirrups. A preoperative ultrasound was limited by maternal body habitus from the abdominal route. The pelvis was prepped and the patient was draped in the usual fashion. Careful pelvic examination is performed to locate the position of the uterus and noted approximate 1 cm dilation of the cervical os. A weighted speculum was placed in the vagina and the cervix was grasped with a single-tooth tenaculum and gently drawn towards the vaginal outlet. With gentle pressure, an 6 and was m dilator was easily passed through the cervical os requiring little dilation increased to 8 mm again with little need for dilation. A 7 mm rigid, curved suction catheter was used for suction. The catheter was placed without suction into the uterine cavity. We again tried the ultrasound, but visualization was not adequate and only the edge of the fundus of the uterus could be seen. Suction was initiated and blood and products of conception were collected in the section catheter container. After adequate removal of products, a sharp curette was used to remove additional products of conception adherent to uterine paige. The products were collected on a Telfa pad. After removing products of conception and feeling circumferential uterine cri, adequate hemostasis was noted from coming from the uterus and the tenaculum was removed. Tenaculum sites were hemostatic. Al instruments were removed. Patient was returned to dorsal supine position and awoke from anesthesia. She was taken to the PACU in good condition.
[2021-07-26] MEDS ORDERED: NALOXONE 0.4 MG/ML VIAL IVP PRN (08:55)
[2021-07-26] MEDS ORDERED: ePHEDrine 50 MG/ML VIAL IVP PRN (08:55)
[2021-07-26] MEDS ORDERED: ONDANSETRON 4 MG/2 ML VIAL IVP PRN (08:55)
[2021-07-26] MEDS ORDERED: fentaNYL 100 MCG/2 ML VIAL IVP PRN (08:55)
[2021-07-26] MEDS ORDERED: ATROPINE ABBOJECT 1 MG/10 ML SYRINGE IVP PRN (08:55)
[2021-07-26] MEDS ORDERED: MORPHINE 2 MG/ML CARPUJECT IVP PRN (08:55)
[2021-07-26] MEDS ORDERED: HYDROmorphone 0.5 MG/0.5 ML SYRINGE IVP PRN (08:55)
[2021-07-26] MEDS ORDERED: METOCLOPRAMIDE 10 MG/2 ML VIAL IVP PRN (08:55)
[2021-07-26] MEDS ORDERED: LACTATED RINGERS 1,000 ML IV SCH (09:00)
--- NOTE | 2021-07-26 09:29 | ANESTHESIA POST OP EVALUATION ---
Anesthesia Post Eval - Post Anesthesia Eval Vitals: Last Vital Signs Temp 36.2 C L 07/26/21 08:56 Pulse 86 07/26/21 09:02 Resp 16 07/26/21 09:02 BP 140/73 H 07/26/21 09:02 Pulse Ox 94 07/26/21 09:02 CV Function Including HR & BP: Stable Pain Control: Satisfactory Nausea & Vomiting: Negative Mental Status: Baseline Respiratory Status: Airway Patent Hydration Status: Satisfactory Anesthesia Complications: None
[2021-07-26 09:49] VITALS: BP 118/70
== END 2021-07-26 06:19 | disposition home or self-care (01) ==
LOC: SDS 06:18
PROVIDERS: ATTEND Obstetrics & Gynecology
PROC: 10D17Z9 Manual Extraction of Products of Conception, Retained, Via Natural or Artificial Opening (ICD-10-PCS; principal; 2021-07-26 07:30)
DX: O02.1 Missed abortion (principal); E66.01 Morbid (severe) obesity due to excess calories; Z68.42 Body mass index [BMI] 45.0-49.9, adult
CPT/HCPCS: 36415; 59820; 85027; 86850; 86900; 86901; A9270; J7120

== ENCOUNTER 2021-09-21 02:52 | Outpatient (CLI) | payer MEDICAID | END 2021-09-21 02:53 | disposition EMS.NT | LOC: EMS 02:52 | DX: S61.411A Laceration without foreign body of right hand, initial encounter (principal); W22.8XXA Striking against or struck by other objects, initial encounter; Y92.009 Unspecified place in unspecified non-institutional (private) residence as the place of occurrence of the external cause ==

== ENCOUNTER 2021-09-21 03:29 | Emergency (ER) | payer MEDICAID ==
[2021-09-21 03:39] VITALS: BP 132/81
--- OUTSIDE RECORDS SUMMARY | 2021-09-21 03:41 | EXTERNAL MEDICAL SUMMARY RPT | Continuity of Care Document ---
:2000 Author Organization [place] Address [address] [place] [address] Phone Care Team Providers Name Role Phone Harriet Unavailable Unavailable Allergies No information. Encounters No information. Medications No information. Problems Procedures date description facility [id number] [facility] Results No information. Vital Signs date measurement value source 20210721 weight_standard 229.99 lb 20210721 weight_metric 104.32 kg 20210721 temperature_standard 98.5 F 20210721 temperature_metric 36.94 C 20210721 respiration_rate 20 /min 20210721 height_standard 65 in 20210721 height_metric 165.1 cm 20210721 heart_rate 109 /min 20210721 BP_systolic 133 mm[Hg] 20210721 BP_diastolic 68 mm[Hg] 20210721 BMI 38.2 kg/m2
[2021-09-21] MEDS ORDERED: TETANUS/DIPHTHERIA/PERTUSSIS 0.5 ML SYRINGE IM ONE (03:51)
[2021-09-21] MEDS ORDERED: lidocaine 1% 20 ML MDV SUBQ ONE (03:51)
[2021-09-21] MEDS ORDERED: BUPIVACAINE 0.5% PF 10 ML VIAL ONE (04:41)
[2021-09-21] MEDS ORDERED: BUPIVACAINE 0.5% PF 10 ML VIAL SUBQ STA (04:54)
--- NOTE | 2021-09-21 05:20 | ED Physician Documentation ---
PD HPI UPPER EXT INJURY - Stated complaint Stated Complaint: RT HAND BLEEDING - Chief complaint Chief Complaint: Ext Problem - History obtained from History obtained from: Patient, Family (Patient's father) - Additonal information Additional information: Patient is a 21-year-old female evaluated for multiple lacerations to her right hand after punching a mirror. Patient reports she was upset with her niece. She denies wanting to harm herself.Patient's father is at the bedside. She is unsure of her last tetanus.She denies injuries elsewhere. 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), Other : None HEENT: None Psych: Depression, Anxiety, Panic attacks Musculoskeletal: Chronic back pain Derm: None - Past Surgical History Past Surgical History: Yes Ortho: Carpal Tunnel surgery /BOTTLE LABEL INSPECTOR: Dilation and currettage HEENT: Tonsil/Adenoidectomy - Present Medications Home Medications: Ambulatory Orders Medication Instructions Recorded Confirmed Albuterol 1 - 2 puffs PO Q4HR PRN 07/25/21 09/15/21 Escitalopram [Lexapro] 10 mg PO DAILY 09/15/21 09/15/21 - Allergies Allergies/Adverse Reactions: Allergies Allergy/AdvReac Type Severity Reaction Status Date / Time Sulfa (Sulfonamide AdvReac Unknown Verified 09/15/21 16:09 Antibiotics) - Social History Does the pt smoke?: No Smoking Status: Never smoker Does the pt drink ETOH?: Yes Does the pt have substance abuse?: No - Immunizations Immunizations are current?: No - POLST Patient has POLST: No PD ED PE NORMAL - General General: Alert and oriented X 3, No acute distress, Well developed/nourished - HEENT HEENT: Atraumatic, Moist mucous membranes, Pharynx benign - Neck Neck: Supple, no meningeal sign - Cardiac Cardiac: RRR, Strong equal pulses - Respiratory Respiratory: No respiratory distress, Clear bilaterally - Extremities Extremities: Normal ROM s pain, Other (Multiple lacerations to right hand; 2 deepest wounds are over the thumb, no signs of tendon injury, 2 small foreign bodies removed from Distal Thumb wound) - Neuro Neuro: No motor deficit, No sensory deficit Eye Opening: Spontaneous Motor: Obeys Commands Verbal: Oriented GCS Score: 15 PD ED PE EXPANDED - Extremities Extremities: Motor intact, Sensory intact, Vascular intact, Tendon intact, Other (Multiple superficial abrasions and scratches to the dorsum of second through fifth digit,None appear to be significant enough to require stitches, all were cleaned copiously with saline and Betadine. Full range of motion of all digits) ELVIN UE/Hands Visual: 1 - laceration 2 - laceration 3 - laceration Results - Vitals Vitals: Vital Signs - 24 hr 09/21/21 09/21/21 03:33 05:29 Temperature 37 C Heart Rate 116 H Respiratory 26 H 20 Rate Blood Pressure 132/81 H O2 Saturation 99 Oxygen O2 Source Room air Procedures - Laceration (location) R hand Length in cm: 2 Wound type: Linear, Into subcut fat, Clean Neurovascular status: Sensory intact, Motor intact Tendon involvement: Tendon intact Anesthesia: Lidocaine 1% Wound preparation: Betadine, Irrigated copiously NS, Wound explored, To the base, Other (No signs of tendon injury) Skin layer closure: Size #-0 - enter number (4-0, Ethilon), Sutures - enter # (4) Other: Patient tolerated well, No complications, Neurovascular intact, Dressing applied, Tetanus booster given R thumb Length in cm: 3 Wound type: Flap, Superficial, Contaminated (2 small Metallicforeign bodies removed) Neurovascular status: Sensory intact, Motor intact, Vascular intact Tendon involvement: Tendon intact Anesthesia: Lidocaine 1% Wound preparation: Betadine, Irrigated copiously NS, FB identified Skin layer closure: Size #-0 - enter number (4-0, Ethilon), Sutures - enter # (5) Other: Patient tolerated well, No complications, Neurovascular intact, Dressing applied, Tetanus booster given PD MEDICAL DECISION MAKING - ED course ED course: Patient presenting with multiple wounds to right handAfter punching a mirror. X-ray reviewed with no bony injury. She appears neurovascularly intact. Wounds were copiously irrigated with more than a liter of saline and scrubbed. 2 wounds required suture repair which patient tolerated well. Tetanus was up-to-date. Patient and her father were both counseled that there is a possibility that a small foreign body could still be retained in the woundsAnd w ere given return precautions. Father has no concerns regarding patient safety and does not feel that she is a danger to herself Or others. Patient also states that sheFeels calm and wants to go home and also does not feel like she is a danger to herself Or others.Patient was initially tachycardic at triage but this quickly resolved through her ED course and no longer tachycardic At time of discharge. Departure - Departure Disposition: 01 Home, Self Care Clinical Impression: Laceration of multiple sites of right hand and fingers Qualifiers: Encounter type: initial encounter Qualified Code(s): S61.411A - Laceration without foreign body of right hand, initial encounter Condition: Stable Instructions: ED Laceration Hand Comments: You were treated for multiple cuts to your right hand. 2 of these cuts were closed with sutures. These sutures should be removed in 1 week. Please keep your wounds clean and dry. As we discussed, there is a chance that a small foreign body could still be in one of your wounds. If you see any signs concerning for infection such as redness, swelling, abnormal drainage please return to the emergency department. Forms: Activity restrictions Discharge Date/Time: 09/21/21 05:30
--- NOTE | 2021-09-21 08:02 | XRAY Report ---
PROCEDURE: Hand 3 View RT INDICATIONS: lacerations/punched mirror TECHNIQUE: 3 views of the hand(s) acquired. COMPARISON: None FINDINGS: Bones: No fractures or dislocations. No suspicious bony lesions. Soft tissues: No suspicious soft tissue calcifications. No radiopaque foreign body. IMPRESSION: No visualized acute fracture or dislocation. However, occult injury cannot be excluded. Recommend erick rt interval imaging follow-up in 7-10 days as clinically indicated for additional evaluation. The above findings are concordant with preliminary report. Reviewed by: Angela Antoine MD on 09/21/2021 8:00 AM PDT Approved by: Angela Antoine MD on 09/21/2021 8:00 AM PDT Station ID: [id number]
== END 2021-09-21 05:30 | disposition home or self-care (01) ==
LOC: ED 03:29
DX: S61.011A Laceration without foreign body of right thumb without damage to nail, initial encounter (principal); S61.411A Laceration without foreign body of right hand, initial encounter; W25.XXXA Contact with sharp glass, initial encounter; Y93.89 Activity, other specified; Z23 Encounter for immunization; Z71.85 Encounter for immunization safety counseling
CPT/HCPCS: 12002; 90471; 99283

== ENCOUNTER 2022-09-04 08:00 | Outpatient (CLI) | payer MEDICAID, OTHER ==
[2022-09-04 22:25] LABS: BACTERIAL VAGINOSIS DNA POSITIVE (NEGATIVE); CANDIDA GLABRATA DNA NEGATIVE (NEGATIVE); CANDIDA GROUP DNA NEGATIVE (NEGATIVE); CANDIDA KRUSEI DNA NEGATIVE (NEGATIVE); TRICHOMONAS VAGINALIS DNA NEGATIVE (NEGATIVE)
== END 2022-09-04 23:59 | disposition home or self-care (01) ==
LOC: LAB.WC 08:00
PROVIDERS: ATTEND Obstetrics & Gynecology
DX: N89.8 Other specified noninflammatory disorders of vagina (principal)
CPT/HCPCS: 81514

== ENCOUNTER 2022-09-28 04:01 | Outpatient (CLI) | payer MEDICAID, OTHER | END 2022-09-28 23:59 | disposition critical access hospital (66) | LOC: EMS 04:01 | DX: R45.851 Suicidal ideations (principal); S30.811A Abrasion of abdominal wall, initial encounter; X78.1XXA Intentional self-harm by knife, initial encounter | CPT/HCPCS: A0425; A0429; A0999 ==

== ENCOUNTER 2022-09-28 04:19 | Emergency (ER) | payer MEDICAID, OTHER ==
--- OUTSIDE RECORDS SUMMARY | 2022-09-28 04:31 | EXTERNAL MEDICAL SUMMARY RPT | Continuity of Care Document ---
:2000 Author Organization [facility] Address [address] [place] [address] Phone Care Team Providers Name Role Phone Crew, Leslie Unavailable Unavailable Allergies and Intolerances date description facility type (no date) sulfamethoxazole [facility] (unknown) (no date) trimethoprim [facility] (unknown) Encounters No information. Functional Status No information. Immunizations No information. Medications date description facility 2022-08-19 00:[address] [facility] Problems date description facility 2022-08-19 00:[address] [facility] 2022-08-19 00:[address] [facility] Procedures No information. Results/Labs test date author facility value unit interpret ation Result panel 1 (unknown) (no date) ([facility] Result panel 2 (unknown) (no date) (unknown[facility]) Result panel 3 (unknown) (no date) (unknown[facility]) Result panel 4 (unknown) (no date) (unknown[facility]) Result panel 5 (unknown) (no date) (unknown[facility]) Result panel 6 (unknown) (no date) (unknown[facility]) Result panel 7 (unknown) (no date) (unknown[facility]) Result panel 8 (unknown) (no date) (unknown[facility]) Result panel 9 (unknown) (no date) (unknown[facility]) Result panel 10 (unknown) (no date) (unknown[facility]) Result panel 11 (unknown) (no date) (unknown[facility]) Result panel 12 (unknown) (no date) (unknown[facility]) Result panel 13 (unknown) (no date) (unknown[facility]) Result panel 14 (unknown) (no date) (unknown[facility]) Result panel 15 (unknown) (no date) (unknown[facility]) Result panel 16 (unknown) (no date) (unknown[facility]) Result panel 17 (unknown) (no date) (unknown[facility]) Result panel 18 (unknown) (no date) (unknown[facility]) Result panel 19 (unknown) (no date) (unknown[facility]) Result panel 20 (unknown) (no date) (unknown[facility]) Result panel 21 (unknown) (no date) (unknown[facility]) Result panel 22 (unknown) (no date) (unknown[facility]) Result panel 23 (unknown) (no date) (unknown[facility]) Result panel 24 (unknown) (no date) (unknown[facility]) Result panel 25 (unknown) (no date) (unknown[facility]) Result panel 26 (unknown) (no date) (unknown[facility]) Result panel 27 (unknown) (no date) (unknown[facility]) Result panel 28 (unknown) (no date) (unknown[facility]) Result panel 29 (unknown) (no date) (unknown[facility]) Result panel 30 (unknown) (no date) (unknown[facility]) Result panel 31 (unknown) (no date) (unknown[facility]) Result panel 32 (unknown) (no date) (unknown[facility]) Result panel 33 (unknown) (no date) (unknown[facility]) Result panel 34 (unknown) (no date) (unknown[facility]) Result panel 35 (unknown) (no date) (unknown[facility]) Result panel 36 (unknown) (no date) (unknown[facility]) Result panel 37 (unknown) (no date) (unknown) [facility]) Result panel 38 (unknown) (no date) (unknown[facility]) Result panel 39 (unknown) (no date) (unknown[facility]) Result panel 40 (unknown) (no date) (unknown[facility]) Result panel 41 (unknown) (no date) (unknown[facility]) Result panel 42 (unknown) (no date) (unknown[facility]) Result panel 43 (unknown) (no date) (unknown[facility]) Result panel 44 (unknown) (no date) (unknown[facility]) Result panel 45 (unknown) (no date) (unknown[facility]) Result panel 46 (unknown) (no date) (unknown[facility]) Result panel 47 (unknown) (no date) (unknown[facility]) Result panel 48 (unknown) (no date) (unknown[facility]) Result panel 49 (unknown) (no date) (unknown) [facility]) Result panel 50 (unknown) (no date) (unknown[facility]) Result panel 51 (unknown) (no date) (unknown[facility]) Result panel 52 (unknown) (no date) (unknown[facility] Result panel 53 (unknown) (no date) (unknown) (unknown) Negative (units (unkn own) unknown) (unknown) (no date) (unknown) (unknown) Negative (units (unkn own) unknown) Result panel 54 (unknown) (no (unknown) (unknown) (no value) (units (unk nown) date) unknown) (unknown) (no (unknown) (unknown) #6.7 grams (units (unk nown) date) unknown) (unknown) (no (unknown) (unknown) 08/19/22 15:50 (units (unknown) date) unknown) (unknown) (no (unknown) (unknown) 08/19/22 (units (unkno wn) date) Range/Units unknown) (unknown) (no (unknown) (unknown) 08/19/22 (units (unkno wn) date) unknown) (unknown) (no (unknown) (unknown) [id number] (units (unkno wn) date) unknown) (unknown) (no (unknown) (unknown) 0RF (units (unkno wn) date) unknown) (unknown) (no (unknown) (unknown) 1 puff INHALATION (units (unknown) date) BID Qty: 12 0RF unknown) (unknown) (no (unknown) (unknown) 15:46 (units (unkno wn) date) unknown) (unknown) (no (unknown) (unknown) 15:50 (units (unkno wn) date) unknown) (unknown) (no (unknown) (unknown) 2 puff INHALATION (units (unknown) date) QID PRN (Reason: unknown) shortness of breath or wheezing) Qty: 6.7 (unknown) (no (unknown) (unknown) 500 mg PO Q8H 7 (units (unknown) date) Days Qty: 0 0RF unknown) (unknown) (no (unknown) (unknown) Age/Sex: 22 / F (units (unknown) date) unknown) (unknown) (no (unknown) (unknown) Allergies (units (unkn own) date) unknown) (unknown) (no (unknown) (unknown) Allergy/AdvReac (units (unknown) date) Type Severity unknown) Reaction Status Date / Time (unknown) (no (unknown) (unknown) Anxiety (units (unkno wn) date) unknown) (unknown) (no (unknown) (unknown) Asthma (units (unkno wn) date) unknown) (unknown) (no (unknown) (unknown) Blood Pressure (units (unknown) date) 110/72 08/19/22 unknown) 15:46 (unknown) (no (unknown) (unknown) Blood Pressure (units (unknown) date) 110/72 unknown) (unknown) (no (unknown) (unknown) COVID19 -Nasal (units (unknown) date) RAPID/Pre-Proc Stat unknown) (unknown) (no (unknown) (unknown) Chief complaint: (units (unknown) date) Upper Respiratory unknown) Symptoms (unknown) (no (unknown) (unknown) Course (units (unkno wn) date) unknown) (unknown) (no (unknown) (unknown) : 2000 (units (unknown) date) Acct:[id number] unknown) (unknown) (no (unknown) (unknown) Date of Service: (units (unknown) date) 08/19/22 unknown) (unknown) (no (unknown) (unknown) Departure (units (unkn own) date) unknown) (unknown) (no (unknown) (unknown) Discharge Plan (units (unknown) date) unknown) (unknown) (no (unknown) (unknown) ED Orders (units (unkn own) date) unknown) (unknown) (no (unknown) (unknown) ER Physician: (units ( unknown) date) Sivakumar Lindo D.O. unknown) (unknown) (no (unknown) (unknown) Emergency Report (units (unknown) date) unknown) (unknown) (no (unknown) (unknown) Exam (units (unkno wn) date) unknown) (unknown) (no (unknown) (unknown) General (units (unkno wn) date) unknown) (unknown) (no (unknown) (unknown) HPI - General (units ( unknown) date) Adult unknown) (unknown) (no (unknown) (unknown) Initial Vital (units ( unknown) date) Signs unknown) (unknown) (no (unknown) (unknown) Initial Vital (units ( unknown) date) Signs: unknown) (unknown) (no (unknown) (unknown) [facility] (units (unknown) date) [address] [place] [address] unknown) [place] [address] (unknown) (no (unknown) (unknown) Lab Data (units (unkno wn) date) unknown) (unknown) (no (unknown) (unknown) Lab Results (units (un known) date) unknown) (unknown) (no (unknown) (unknown) Labs: (units (unkno wn) date) unknown) (unknown) (no (unknown) (unknown) Remington Murillo, (units (unknown) date) MD [Primary Care unknown) Provider] (unknown) (no (unknown) (unknown) Medical Decision (units (unknown) date) Making unknown) (unknown) (no (unknown) (unknown) Medical History (units (unknown) date) (Updated 07/12/22 @ unknown) 00:01 by ) (unknown) (no (unknown) (unknown) Medication (units (unk nown) date) Instructions unknown) Recorded (unknown) (no (unknown) (unknown) Mode of arrival: (units (unknown) date) Ambulatory unknown) (unknown) (no (unknown) (unknown) No Action (units (unkn own) date) unknown) (unknown) (no (unknown) (unknown) Ordered: (units (unkno wn) date) unknown) (unknown) (no (unknown) (unknown) Orders (units (unkno wn) date) unknown) (unknown) (no (unknown) (unknown) Oxygen Delivery (units (unknown) date) Method 08/19/22 unknown) 15:46 (unknown) (no (unknown) (unknown) Oxygen Delivery (units (unknown) date) Method Room Air unknown) (unknown) (no (unknown) (unknown) Patient History (units (unknown) date) unknown) (unknown) (no (unknown) (unknown) Patient: (units (unkno wn) date) Cici Campos unknown) MR#: [id number] (unknown) (no (unknown) (unknown) Prescriptions: (units (unknown) date) unknown) (unknown) (no (unknown) (unknown) Previous Rx's (units ( unknown) date) unknown) (unknown) (no (unknown) (unknown) Pulse Oximetry 97 (units (unknown) date) 08/19/22 15:46 unknown) (unknown) (no (unknown) (unknown) Pulse Oximetry 97 (units (unknown) date) unknown) (unknown) (no (unknown) (unknown) Pulse Rate 73 (units ( unknown) date) 08/19/22 15:46 unknown) (unknown) (no (unknown) (unknown) Pulse Rate 73 (units ( unknown) date) unknown) (unknown) (no (unknown) (unknown) Referrals: (units (unk nown) date) unknown) (unknown) (no (unknown) (unknown) Related Data (units (u nknown) date) unknown) (unknown) (no (unknown) (unknown) Respiratory Rate (units (unknown) date) 16 08/19/22 15:46 unknown) (unknown) (no (unknown) (unknown) Respiratory Rate (units (unknown) date) 16 unknown) (unknown) (no (unknown) (unknown) Rx Instructions: (units (unknown) date) unknown) (unknown) (no (unknown) (unknown) SARS-CoV-2 (PCR) (units (unknown) date) Negative (Negative) unknown) (unknown) (no (unknown) (unknown) See Rx (units (unkno wn) date) Instructions .ROUTE unknown) .COMPLEX Qty: 6 0RF (unknown) (no (unknown) (unknown) Signed By: (units (unk nown) date) unknown) (unknown) (no (unknown) (unknown) Smoking Status: (units (unknown) date) Current every day unknown) smoker (unknown) (no (unknown) (unknown) Social History (units (unknown) date) (Reviewed 06/27/22 unknown) @ 23:44 by Sivakumar Lindo DO) (unknown) (no (unknown) (unknown) Source: patient (units (unknown) date) unknown) (unknown) (no (unknown) (unknown) Stated complaint: (units (unknown) date) coughing, tightness unknown) in chest, hard to breathe (unknown) (no (unknown) (unknown) Substance Use (units ( unknown) date) Type: does not use unknown) (unknown) (no (unknown) (unknown) Sulfamethoxazole-T (units (unknown) date) rimethoprim] unknown) (unknown) (no (unknown) (unknown) Temperature 97.9 F (units (unknown) date) 08/19/22 15:46 unknown) (unknown) (no (unknown) (unknown) Temperature 97.9 F (units (unknown) date) unknown) (unknown) (no (unknown) (unknown) Time Seen by (units (u nknown) date) Provider: 08/19/22 unknown) 16:59 (unknown) (no (unknown) (unknown) Vital Signs - 8 hr (units (unknown) date) unknown) (unknown) (no (unknown) (unknown) Vital Signs (units (un known) date) unknown) (unknown) (no (unknown) (unknown) Vital signs: (units (u nknown) date) unknown) (unknown) (no (unknown) (unknown) [From s (units (unkno wn) date) unknown) (unknown) (no (unknown) (unknown) aerosol inhaler (units (unknown) date) shortness of breath unknown) or wheezing (unknown) (no (unknown) (unknown) albuterol sulfate (units (unknown) date) 90 mcg/actuation 2 unknown) puff inhalation QID PRN 11/15/19 (unknown) (no (unknown) (unknown) albuterol sulfate (units (unknown) date) 90 mcg/actuation unknown) HFA aerosol inhaler (unknown) (no (unknown) (unknown) alcohol intake (units (unknown) date) frequency: a few unknown) times a week (unknown) (no (unknown) (unknown) amoxicillin 500 MG (units (unknown) date) capsule unknown) (unknown) (no (unknown) (unknown) amoxicillin 500 mg (units (unknown) date) capsule 500 mg PO unknown) Q8H 7 days #0 caps 11/13/16 (unknown) (no (unknown) (unknown) azithromycin 250 (units (unknown) date) mg tablet See Rx unknown) Instructions PO .COMPLEX 11/15/19 (unknown) (no (unknown) (unknown) azithromycin 250 (units (unknown) date) mg tablet unknown) (unknown) (no (unknown) (unknown) fluticasone (units (un known) date) propionate 220 1 unknown) puff inhalation BID asthma #12 11/15/19 (unknown) (no (unknown) (unknown) fluticasone (units (un known) date) propionate 220 unknown) mcg/actuation HFA aerosol inhaler (unknown) (no (unknown) (unknown) lives (units (unkno wn) date) independently: Yes unknown) (unknown) (no (unknown) (unknown) mcg/actuation HFA (units (unknown) date) aerosol inhaler unknown) grams (unknown) (no (unknown) (unknown) pneumonia #6 tabs (units (unknown) date) unknown) (unknown) (no (unknown) (unknown) sulfamethoxazole (units (unknown) date) AdvReac Severe unknown) Palpitation Verified 08/19/22 15:52 (unknown) (no (unknown) (unknown) take 500 mg today (units (unknown) date) (day 1), then 250 unknown) mg for 4 days (days 2-5) (unknown) (no (unknown) (unknown) tobacco type: (units ( unknown) date) vaping unknown) (unknown) (no (unknown) (unknown) trimethoprim (units (u nknown) date) AdvReac Severe unknown) Palpitation Verified 08/19/22 15:52 Result panel 55 (unknown) (no (unknown) (unknown) (no value) (units (unk nown) date) unknown) (unknown) (no (unknown) (unknown) #6.7 grams (units (unk nown) date) unknown) (unknown) (no (unknown) (unknown) #8.5 grams (units (unk nown) date) unknown) (unknown) (no (unknown) (unknown) <Electronically (units (unknown) date) signed by Sivakumar Lindo D.O.> (unknown) (no (unknown) (unknown) 08/19/22 15:50 (units (unknown) date) unknown) (unknown) (no (unknown) (unknown) 08/19/22 1858 (units ( unknown) date) unknown) (unknown) (no (unknown) (unknown) 08/19/22 (units (unkno wn) date) Range/Units unknown) (unknown) (no (unknown) (unknown) 08/19/22 (units (unkno wn) date) unknown) (unknown) (no (unknown) (unknown) [id number] (units (unkno wn) date) unknown) (unknown) (no (unknown) (unknown) 0RF (units (unkno wn) date) unknown) (unknown) (no (unknown) (unknown) 1 puff INHALATION (units (unknown) date) BID Qty: 12 0RF unknown) (unknown) (no (unknown) (unknown) 15:46 (units (unkno wn) date) unknown) (unknown) (no (unknown) (unknown) 15:50 (units (unkno wn) date) unknown) (unknown) (no (unknown) (unknown) 2 puff INHALATION (units (unknown) date) QID PRN (Reason: unknown) shortness of breath or wheezing) Qty: 6.7 (unknown) (no (unknown) (unknown) 2 puff inhalation (units (unknown) date) QID PRN (Reason: unknown) shortness of breath or wheezing) Qty: 8.5 (unknown) (no (unknown) (unknown) 500 mg PO Q8H 7 (units (unknown) date) Days Qty: 0 0RF unknown) (unknown) (no (unknown) (unknown) Activity (units (unkno wn) date) Restrictions/Additi unknown) onal Instructions: (unknown) (no (unknown) (unknown) Age/Sex: 22 / F (units (unknown) date) unknown) (unknown) (no (unknown) (unknown) Allergies (units (unkn own) date) unknown) (unknown) (no (unknown) (unknown) Allergy/AdvReac (units (unknown) date) Type Severity unknown) Reaction Status Date / Time (unknown) (no (unknown) (unknown) Anxiety (units (unkno wn) date) unknown) (unknown) (no (unknown) (unknown) Asthma (units (unkno wn) date) unknown) (unknown) (no (unknown) (unknown) Auscultation: (units ( unknown) date) clear to unknown) auscultation bilaterally (unknown) (no (unknown) (unknown) Blood Pressure (units (unknown) date) 110/72 08/19/22 unknown) 15:46 (unknown) (no (unknown) (unknown) Blood Pressure (units (unknown) date) 110/72 unknown) (unknown) (no (unknown) (unknown) COVID test was (units (unknown) date) negative. Patient unknown) states she has had an albuterol inhaler in the (unknown) (no (unknown) (unknown) COVID19 -Nasal (units (unknown) date) RAPID/Pre-Proc Stat unknown) (unknown) (no (unknown) (unknown) Cardio (units (unkno wn) date) unknown) (unknown) (no (unknown) (unknown) Chest congestion, (units (unknown) date) Cough unknown) (unknown) (no (unknown) (unknown) Chief complaint: (units (unknown) date) Upper Respiratory unknown) Symptoms (unknown) (no (unknown) (unknown) Clinical (units (unkno wn) date) Impression: unknown) (unknown) (no (unknown) (unknown) Const (units (unkno wn) date) unknown) (unknown) (no (unknown) (unknown) Constitutional (units (unknown) date) unknown) (unknown) (no (unknown) (unknown) Constitutional: (units (unknown) date) Reports system unknown) reviewed and no additional complaints, except as (unknown) (no (unknown) (unknown) Continue to take (units (unknown) date) all of your unknown) medications as directed. I do recommend that you (unknown) (no (unknown) (unknown) Course (units (unkno wn) date) unknown) (unknown) (no (unknown) (unknown) : 2000 (units (unknown) date) Acct:[id number] unknown) (unknown) (no (unknown) (unknown) Date of Service: (units (unknown) date) 08/19/22 unknown) (unknown) (no (unknown) (unknown) Departure (units (unkn own) date) unknown) (unknown) (no (unknown) (unknown) Discharge Plan (units (unknown) date) unknown) (unknown) (no (unknown) (unknown) ED Orders (units (unkn own) date) unknown) (unknown) (no (unknown) (unknown) ENT (units (unkno wn) date) unknown) (unknown) (no (unknown) (unknown) ER Physician: (units ( unknown) date) Sivakumar Lindo D.O. unknown) (unknown) (no (unknown) (unknown) Ears, Nose, Mouth, (units (unknown) date) and Throat: Reports unknown) system reviewed and no additional (unknown) (no (unknown) (unknown) Effort + (units (unkno wn) date) Inspection: normal unknown) respiratory effort (unknown) (no (unknown) (unknown) Emergency Report (units (unknown) date) unknown) (unknown) (no (unknown) (unknown) Exam (units (unkno wn) date) unknown) (unknown) (no (unknown) (unknown) Gastrointestinal (units (unknown) date) unknown) (unknown) (no (unknown) (unknown) Gastrointestinal: (units (unknown) date) Reports system unknown) reviewed and no additional complaints, except (unknown) (no (unknown) (unknown) General (units (unkno wn) date) unknown) (unknown) (no (unknown) (unknown) General: (units (unkno wn) date) cooperative and unknown) comfortable (unknown) (no (unknown) (unknown) HPI - General (units ( unknown) date) Adult unknown) (unknown) (no (unknown) (unknown) HPI narrative: (units (unknown) date) unknown) (unknown) (no (unknown) (unknown) History of Present (units (unknown) date) Illness unknown) (unknown) (no (unknown) (unknown) Initial Vital (units ( unknown) date) Signs unknown) (unknown) (no (unknown) (unknown) Initial Vital (units ( unknown) date) Signs: unknown) (unknown) (no (unknown) (unknown) Instructions: (units ( unknown) date) Cough unknown) (unknown) (no (unknown) (unknown) Integumentary/[place] (units (unknown) date) sts unknown) (unknown) (no (unknown) (unknown) [facility] (units (unknown) date) [address] unknown) [place] [address] (unknown) (no (unknown) (unknown) Lab Data (units (unkno wn) date) unknown) (unknown) (no (unknown) (unknown) Lab Results (units (un known) date) unknown) (unknown) (no (unknown) (unknown) Lab results (units (un known) date) reviewed: Yes I unknown) reviewed the patient's lab results. (unknown) (no (unknown) (unknown) Labs: (units (unkno wn) date) unknown) (unknown) (no (unknown) (unknown) Remington Murillo, (units (unknown) date) MD [Primary Care unknown) Provider] (unknown) (no (unknown) (unknown) MDM Narrative (units ( unknown) date) unknown) (unknown) (no (unknown) (unknown) Medical Decision (units (unknown) date) Making unknown) (unknown) (no (unknown) (unknown) Medical History (units (unknown) date) (Reviewed 08/19/22 unknown) @ 18:56 by Sivakumar Lindo DO) (unknown) (no (unknown) (unknown) Medical decision (units (unknown) date) making narrative: unknown) (unknown) (no (unknown) (unknown) Medication (units (unk nown) date) Instructions unknown) Recorded (unknown) (no (unknown) (unknown) Mode of arrival: (units (unknown) date) Ambulatory unknown) (unknown) (no (unknown) (unknown) New (units (unkno wn) date) unknown) (unknown) (no (unknown) (unknown) No Action (units (unkn own) date) unknown) (unknown) (no (unknown) (unknown) Ordered: (units (unkno wn) date) unknown) (unknown) (no (unknown) (unknown) Orders (units (unkno wn) date) unknown) (unknown) (no (unknown) (unknown) Oxygen Delivery (units (unknown) date) Method 08/19/22 unknown) 15:46 (unknown) (no (unknown) (unknown) Oxygen Delivery (units (unknown) date) Method Room Air unknown) (unknown) (no (unknown) (unknown) Patient (units (unkno wn) date) Disposition: Home unknown) (unknown) (no (unknown) (unknown) Patient History (units (unknown) date) unknown) (unknown) (no (unknown) (unknown) Patient has no (units (unknown) date) respiratory unknown) distress. Lungs are clear. Afebrile. Clinically (unknown) (no (unknown) (unknown) Patient is a (units (u nknown) date) 22-year-old female unknown) who is here for evaluation of approximately 3 (unknown) (no (unknown) (unknown) Patient: (units (unkno wn) date) Cici Campos unknown) MR#: [id number] (unknown) (no (unknown) (unknown) Prescriptions: (units (unknown) date) unknown) (unknown) (no (unknown) (unknown) Previous Rx's (units ( unknown) date) unknown) (unknown) (no (unknown) (unknown) Pulse Oximetry 97 (units (unknown) date) 08/19/22 15:46 unknown) (unknown) (no (unknown) (unknown) Pulse Oximetry 97 (units (unknown) date) unknown) (unknown) (no (unknown) (unknown) Pulse Rate 73 (units ( unknown) date) 08/19/22 15:46 unknown) (unknown) (no (unknown) (unknown) Pulse Rate 73 (units ( unknown) date) unknown) (unknown) (no (unknown) (unknown) Rate: regular rate (units (unknown) date) unknown) (unknown) (no (unknown) (unknown) Referrals: (units (unk nown) date) unknown) (unknown) (no (unknown) (unknown) Related Data (units (u nknown) date) unknown) (unknown) (no (unknown) (unknown) Resp (units (unkno wn) date) unknown) (unknown) (no (unknown) (unknown) Respiratory Rate (units (unknown) date) 16 08/19/22 15:46 unknown) (unknown) (no (unknown) (unknown) Respiratory Rate (units (unknown) date) 16 unknown) (unknown) (no (unknown) (unknown) Respiratory (units (un known) date) unknown) (unknown) (no (unknown) (unknown) Respiratory: (units (u nknown) date) Reports system unknown) reviewed and no additional complaints, except as (unknown) (no (unknown) (unknown) Review of Systems (units (unknown) date) unknown) (unknown) (no (unknown) (unknown) Rhythm: regular (units (unknown) date) rhythm unknown) (unknown) (no (unknown) (unknown) Rx Instructions: (units (unknown) date) unknown) (unknown) (no (unknown) (unknown) SARS-CoV-2 (PCR) (units (unknown) date) Negative (Negative) unknown) (unknown) (no (unknown) (unknown) See Rx (units (unkno wn) date) Instructions .ROUTE unknown) .COMPLEX Qty: 6 0RF (unknown) (no (unknown) (unknown) She denies any (units (unknown) date) palpitations. One unknown) of her coughing episodes today she stated that (unknown) (no (unknown) (unknown) Signed By: (units (unk nown) date) unknown) (unknown) (no (unknown) (unknown) Skin/Breast: (units (u nknown) date) Reports system unknown) reviewed and no additional complaints, except as (unknown) (no (unknown) (unknown) Smoking Status: (units (unknown) date) Current every day unknown) smoker (unknown) (no (unknown) (unknown) Social History (units (unknown) date) (Reviewed 08/19/22 unknown) @ 18:56 by Sivakumar Lindo DO) (unknown) (no (unknown) (unknown) Source: patient (units (unknown) date) unknown) (unknown) (no (unknown) (unknown) Stand Alone Forms: (units (unknown) date) Patient Portal/API unknown) (unknown) (no (unknown) (unknown) Stated complaint: (units (unknown) date) coughing, tightness unknown) in chest, hard to breathe (unknown) (no (unknown) (unknown) Substance Use (units ( unknown) date) Type: does not use unknown) (unknown) (no (unknown) (unknown) Sulfamethoxazole-T (units (unknown) date) rimethoprim] unknown) (unknown) (no (unknown) (unknown) Temperature 97.9 F (units (unknown) date) 08/19/22 15:46 unknown) (unknown) (no (unknown) (unknown) Temperature 97.9 F (units (unknown) date) unknown) (unknown) (no (unknown) (unknown) Time Seen by (units (u nknown) date) Provider: 08/19/22 unknown) 16:59 (unknown) (no (unknown) (unknown) Vital Signs - 8 hr (units (unknown) date) unknown) (unknown) (no (unknown) (unknown) Vital Signs (units (un known) date) unknown) (unknown) (no (unknown) (unknown) Vital signs: (units (u nknown) date) unknown) (unknown) (no (unknown) (unknown) [From s (units (unkno wn) date) unknown) (unknown) (no (unknown) (unknown) aerosol inhaler (units (unknown) date) shortness of breath unknown) or wheezing (unknown) (no (unknown) (unknown) albuterol sulfate (units (unknown) date) 90 mcg/actuation 2 unknown) puff inhalation QID PRN 08/19/22 (unknown) (no (unknown) (unknown) albuterol sulfate (units (unknown) date) 90 mcg/actuation 2 unknown) puff inhalation QID PRN 11/15/19 (unknown) (no (unknown) (unknown) albuterol sulfate (units (unknown) date) 90 mcg/actuation unknown) HFA aerosol inhaler (unknown) (no (unknown) (unknown) alcohol intake (units (unknown) date) frequency: a few unknown) times a week (unknown) (no (unknown) (unknown) amoxicillin 500 MG (units (unknown) date) capsule unknown) (unknown) (no (unknown) (unknown) amoxicillin 500 mg (units (unknown) date) capsule 500 mg PO unknown) Q8H 7 days #0 caps 11/13/16 (unknown) (no (unknown) (unknown) as documented (units ( unknown) date) unknown) (unknown) (no (unknown) (unknown) azithromycin 250 (units (unknown) date) mg tablet See Rx unknown) Instructions PO .COMPLEX 11/15/19 (unknown) (no (unknown) (unknown) azithromycin 250 (units (unknown) date) mg tablet unknown) (unknown) (no (unknown) (unknown) complaints, except (units (unknown) date) as documented unknown) (unknown) (no (unknown) (unknown) days of tightness (units (unknown) date) in her chest and unknown) coughing and hard to breathe. She states (unknown) (no (unknown) (unknown) documented (units (unk nown) date) unknown) (unknown) (no (unknown) (unknown) does not have (units ( unknown) date) pneumonia. We can unknown) hold on any radiologic studies for now. Her (unknown) (no (unknown) (unknown) fluticasone (units (un known) date) propionate 220 1 unknown) puff inhalation BID asthma #12 11/15/19 (unknown) (no (unknown) (unknown) fluticasone (units (un known) date) propionate 220 unknown) mcg/actuation HFA aerosol inhaler (unknown) (no (unknown) (unknown) helpful to her (units (unknown) date) today but I will unknown) refill it for her. Will discharge patient home (unknown) (no (unknown) (unknown) it did seem to be (units (unknown) date) blood-tinged. unknown) (unknown) (no (unknown) (unknown) lives (units (unkno wn) date) independently: Yes unknown) (unknown) (no (unknown) (unknown) mcg/actuation HFA (units (unknown) date) aerosol inhaler unknown) grams (unknown) (no (unknown) (unknown) new or worsening (units (unknown) date) symptoms. unknown) (unknown) (no (unknown) (unknown) over the past (units ( unknown) date) couple days and has unknown) been negative. Not a productive cough. No (unknown) (no (unknown) (unknown) past. I told her (units (unknown) date) that she did not unknown) have any wheezing so this may not be all that (unknown) (no (unknown) (unknown) pneumonia #6 tabs (units (unknown) date) unknown) (unknown) (no (unknown) (unknown) sulfamethoxazole (units (unknown) date) AdvReac Severe unknown) Palpitation Verified 08/19/22 15:52 (unknown) (no (unknown) (unknown) take 500 mg today (units (unknown) date) (day 1), then 250 unknown) mg for 4 days (days 2-5) (unknown) (no (unknown) (unknown) test yourself (units ( unknown) date) daily for COVID at unknown) home. Return to emergency department for any (unknown) (no (unknown) (unknown) that her roommate (units (unknown) date) recently had COVID. unknown) Patient is tested herself multiple times (unknown) (no (unknown) (unknown) tobacco type: (units ( unknown) date) vaping unknown) (unknown) (no (unknown) (unknown) trimethoprim (units (u nknown) date) AdvReac Severe unknown) Palpitation Verified 08/19/22 15:52 (unknown) (no (unknown) (unknown) vomiting. She did (units (unknown) date) get somewhat unknown) lightheaded today while standing in the shower. (unknown) (no (unknown) (unknown) with return (units (un known) date) precautions. She unknown) expressed understanding and agreement. Social History date description facility 2022-08-19 00:00 Smokes tobacco daily (finding) [facility] Vital Signs date measurement value units 2022-08-19 00:00 BMI 41.5 kg/m2 2022-08-19 00:00 BP_diastolic 72 mmHg 2022-08-19 00:00 BP_systolic 110 mmHg 2022-08-19 00:00 heart_rate 73 /min 2022-08-19 00:00 height_metric 165.1 cm 2022-08-19 00:00 height_standard 65 in 2022-08-19 00:00 o2_saturation 97 % 2022-08-19 00:00 respiration_rate 16 /min 2022-08-19 00:00 temperature_metric 36.61 C 2022-08-19 00:00 temperature_standard 97.9 F 2022-08-19 00:00 weight_metric 113.39 kg 2022-08-19 00:00 weight_standard 249.98 lb
[2022-09-28] MEDS ORDERED: LORazepam 1 MG TABLET PO STA (04:55)
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
[2022-09-28 05:52] LABS: BASOPHILS # (AUTO) 0.1 10^3/uL (0.0-0.1); BASOPHILS % (AUTO) 0.7 %; EOSINOPHILS # (AUTO) 0.2 10^3/uL (0.0-0.7); EOSINOPHILS % (AUTO) 2.2 %; HCT - HEMATOCRIT 40.6 % (37.0-47.0); HGB - HEMOGLOBIN 13.9 g/dL (12.0-16.0); LYMPHOCYTES # (AUTO) 3.6 10^3/uL (1.5-3.5); LYMPHOCYTES % (AUTO) 43.2 %; MEAN CORPUSCULAR HEMOGLOBIN 30.6 pg (27.0-31.0); MEAN CORPUSCULAR HGB CONC 34.2 g/dL (32.0-36.0); MEAN CORPUSCULAR VOLUME 89.4 fL (81.0-99.0); MEAN PLATELET VOLUME 9.1 fL (7.9-10.8); MONOCYTES # (AUTO) 0.6 10^3/uL (0.0-1.0); MONOCYTES % (AUTO) 6.8 %; NEUTROPHILS # (AUTO) 3.9 10^3/uL (1.5-6.6); NEUTROPHILS % (AUTO) 46.6 %; PLT - PLATELET COUNT 323 10^3/uL (130-450); RED BLOOD COUNT 4.54 10^6/uL (4.20-5.40); RED CELL DISTRIBUTION WIDTH 12.6 % (12.0-15.0); WHITE BLOOD COUNT 8.4 x10^3/uL (4.8-10.8)
[2022-09-28 06:13] LABS: ACETAMINOPHEN < 10 ug/mL (10-30); ALBUMIN 4.1 g/dL (3.2-5.5); ALBUMIN/GLOBULIN RATIO 1.1 (1.0-2.2); ALKALINE PHOSPHATASE 83 IU/L (42-121); ALT ALANINE AMINOTRANSFERASE 22 IU/L (10-60); AST ASPARTATE AMINOTRANSFERASE 18 IU/L (10-42); BILIRUBIN,TOTAL 0.2 mg/dL (0.2-1.0); BUN - BLOOD UREA NITROGEN 10 mg/dL (6-20); CALCIUM 8.7 mg/dL (8.5-10.3); CARBON DIOXIDE - CO2 23 mmol/L (21-32); CHLORIDE 108 mmol/L (101-111); CREATININE 0.6 mg/dL (0.4-1.0); ETOH - ETHANOL 61.8 mg/dL; GFR - MDRD 123 (>89); GLUCOSE 96 mg/dL (70-100); LIPASE 32 U/L (22-51); POTASSIUM 3.8 mmol/L (3.5-5.0); SALICYLATE < 6.0 mg/dL; SODIUM 139 mmol/L (135-145); TOTAL PROTEIN 7.7 g/dL (6.7-8.2)
[2022-09-28 06:47] LABS: MUDS CUTOFF CONCENTRATIONS CUTOFF CONC BELOW:
[2022-09-28 06:51] LABS: BILIRUBIN,URINE NEGATIVE (NEGATIVE); GLUCOSE, URINE (UA) NEGATIVE (NEGATIVE); KETONES,URINE (UA) TRACE mg/dL (NEGATIVE); LEUKOCYTE ESTERASE, URINE NEGATIVE (NEGATIVE); NITRITE,URINE NEGATIVE (NEGATIVE); OCCULT BLOOD,URINE MODERATE (NEGATIVE); PROTEIN,URINE NEGATIVE (NEGATIVE); UROBILINOGEN,URINE 0.2 (NORMAL) E.U./dL (NORMAL)
[2022-09-28 06:52] LABS: CLARITY,URINE CLEAR (CLEAR); HCG UR QUAL NEGATIVE
[2022-09-28 06:59] LABS: BACTERIA,URINE Rare /HPF (None Seen); RBC,URINE 0-5 /HPF (0-5); SQUAMOUS EPITHELIAL CELL,UR FEW Squamous (<= Few); WBC,URINE 0-3 /HPF (0-5)
[2022-09-28 07:00] LABS: AMPHETAMINE SCREEN,URINE NEGATIVE (NEGATIVE); BARBITURATE SCREEN,UR NEGATIVE (NEGATIVE); BENZODIAZEPINES SCREEN, URINE POSITIVE (NEGATIVE); COCAINE SCREEN URINE NEGATIVE (NEGATIVE); METHADONE SCREEN, URINE NEGATIVE (NEGATIVE); METHAMPHETAMINES SCREEN, URINE NEGATIVE (NEGATIVE); OPIATE SCREEN, URINE NEGATIVE (NEGATIVE); OXYCODONE SCREEN, URINE NEGATIVE (NEGATIVE); PROPOXYPHENE SCREEN, URINE NEGATIVE (NEGATIVE); THC CANNABINOID SCREEN, URINE NEGATIVE (NEGATIVE); TRICYCLIC ANTIDEPRESSANT,URINE NEGATIVE (NEGATIVE)
[2022-09-28] MEDS ORDERED: NICOTINE 14 MG PATCH TOP STA (09:26)
--- NOTE | 2022-09-28 14:09 | ED Physician Documentation ---
ED Addendum - Addendum Addendum: 09/28/22 14:07 The patient is comfortable and without any complaints after change of shift. Her records were been reviewed by [facility] and they do accept her in transfer. EMTALA forms were filled out by me. The patient will be transferred by S ambulance for safety. Disposition transferred to psychiatric facility in stable condition. Diagnoses: 1. Reactive depression 2. Suicidal ideation
[2022-09-28 15:07] VITALS: BP 120/68
== END 2022-09-28 15:24 ==
LOC: EDUNIT# → ED 04:19
DX: R45.851 Suicidal ideations (principal); F33.1 Major depressive disorder, recurrent, moderate; Z20.822 Contact with and (suspected) exposure to COVID-19
CPT/HCPCS: 36415; 80053; 80306; 80307; 80320; 80329; 81001; 81025; 83690; 84443; 85025; 87635; 99284; 99285; A9270; J8499; 81003; 87086

== ENCOUNTER 2023-05-28 15:44 | Emergency (ER) | payer MEDICAID ==
--- NOTE | 2023-05-28 17:39 | ED Physician Documentation ---
PD HPI HEENT - Stated complaint Stated Complaint: MOUTH PX/SWELLING - Chief complaint Chief Complaint: Heent - History obtained from History obtained from: Patient - History of Present Illness Timing - onset: How many days ago (4) Timing - duration: Days (4) Timing - details: Gradual onset, Still present Location: Tooth (left upper tooth with gum swelling and pain with some discharge/drainiage. Lower gum/tooth also hurting.) Associated symptoms: Facial swelling (left maxilla and mandible area. No skin redness.). No: Fever, Congestion Similar symptoms before: Has not had sx before Review of Systems Constitutional: denies: Fever, Chills Nose: denies: Rhinorrhea / runny nose, Congestion Throat: denies: Sore throat Cardiac: denies: Chest pain / pressure Respiratory: denies: Cough PD PAST MEDICAL HISTORY - Past Medical History Cardiovascular: Arrhythmia, Other Respiratory: Asthma, Pneumonia Neuro: None Endocrine/Autoimmune: None GI: None MAINTENANCE PLANNER: Miscarriage(s), Other : None HEENT: None Psych: Depression, Anxiety, Panic attacks Musculoskeletal: Chronic back pain Derm: None - Past Surgical History Past Surgical History: Yes Ortho: Carpal Tunnel surgery /MAINTENANCE PLANNER: Dilation and currettage HEENT: Tonsil/Adenoidectomy - Present Medications Home Medications: Ambulatory Orders Medication Instructions Recorded Confirmed Albuterol 1 - 2 puffs PO Q4HR PRN 07/25/21 05/28/23 Chlorhexidine Gluconate [Peridex] 10 ml MM BID #118 ml 05/28/23 Ibuprofen [Motrin] 600 mg PO TID PRN #25 tab 05/28/23 OXcarbazepine [Trileptal] 150 mg PO DAILY 05/28/23 05/28/23 Sertraline HCl 100 mg PO DAILY 05/28/23 05/28/23 clindamycin HCL [Clindamycin HCl] 300 mg PO TID 7 Days #20 cap 05/28/23 - Allergies Allergies/Adverse Reactions: Allergies Allergy/AdvReac Type Severity Reaction Status Date / Time Sulfa (Sulfonamide AdvReac Unknown Verified 09/28/22 04:39 Antibiotics) - Social History Does the pt smoke?: No Smoking Status: Never smoker Does the pt drink ETOH?: Yes Does the pt have substance abuse?: No - Immunizations Immunizations are current?: No Immunizations: TDAP >10years/unknown - POLST Patient has POLST: No PD ED PE NORMAL - Vitals Vital signs reviewed: Yes - General General: Alert and oriented X 3, No acute distress, Well developed/nourished - HEENT HEENT: Pharynx benign. No: Dentition benign (teeth are mostly good. Prior wisdom teeth extracted. Gums at area of 3rd molars have swelling and redness with tender both upper and lower, with some tenderness 2nd molar upper left. No fluctuance/abscess. ) - Neck Neck: Supple, no meningeal sign, No adenopathy - Cardiac Cardiac: RRR, No murmur - Respiratory Respiratory: Clear bilaterally Results - Vitals Vitals: Oxygen O2 Source Room air PD Medical Decision Making - ED course Complexity details: considered differential (dental/gum infection with some drainage, no residual fluctuance at this time, but still infection. Rx antibiotics, NSAIDs and use tylenol. Declined opioids.), d/w patient Departure - Departure Disposition: 01 Home, Self Care Clinical Impression: Dental infection Condition: Stable Record reviewed to determine appropriate education?: Yes Instructions: ED Abscess Dental Prescriptions: clindamycin HCL [Clindamycin HCl] 300 mg PO TID 7 Days #20 cap Ibuprofen [Motrin] 600 mg PO TID PRN #25 tab PRN Reason: Pain Chlorhexidine Gluconate [Peridex] 10 ml MM BID #118 ml Comments: Clindamycin antibiotic 3 times daily with food for the next week for the infection. Also use chlorhexidine oral antiseptic 10 mL swish around the area and spit out twice daily for the next week or so as well. For the pain and inflammation, use ibuprofen 3 times daily with food until feeling improved. To that you can add Tylenol 500 to 650 mg every 4-6 hours if needed for pain as well. I would anticipate improvement in your pain and swelling over the next 2 to 3 days and resolution over 3 to 5 days. Subsequently follow-up with the dental clinic for more definitive care of the tooth so it does not get reinfected. We do not have a call list per se for dentist so he does have to contact your insurance and see if they have a preferred provider list for dentist. I sent your prescriptions to your preferred pharmacy. Forms: PCP List Discharge Date/Time: 05/28/23 18:13
[2023-05-28] MEDS ORDERED: CLINDAMYCIN 150 MG CAPSULE PO STA (17:50)
[2023-05-28] MEDS ORDERED: IBUPROFEN 600 MG TABLET PO STA (17:50)
[2023-05-28] MEDS ORDERED: ACETAMINOPHEN 325 MG TABLET PO STA (17:50)
[2023-05-28 17:51] VITALS: BP 127/87; O2SAT 96
== END 2023-05-28 18:13 | disposition home or self-care (01) ==
LOC: ED 15:44
DX: K04.7 Periapical abscess without sinus (principal); Z79.899 Other long term (current) drug therapy
CPT/HCPCS: 99282; 99283; A9270

== ENCOUNTER 2023-07-11 08:27 | Outpatient (CLI) | payer MEDICAID ==
--- NOTE | 2023-07-11 13:14 | Ultrasound Report ---
PROCEDURE: Soft Tissue Head or Neck INDICATIONS: JAW PAIN TECHNIQUE: Real-time scanning was performed of the parotid gland, with image documentation. COMPARISON: None FINDINGS: Sonographic evaluation of the parotid gland demonstrates enlargement of the right parotid gland, laura uring 5.7 x 1.1 x 5.1 cm. The largest diameter of the left parotid gland measures 3.1 cm. In the region of pain in the right submandibular space, there is a nonenlarged right submandibular ly mph node measuring 1.1 x 1.0 x 0.6 cm. IMPRESSION: Asymmetric enlargement of the right parotid gland, without measurable mass. Findings are probably rel ated to infection. Nonenlarged submandibular and cervical chain node, corresponding to a second region of pain. This is probably reactive. Reviewed by: Erich Mojica MD on 07/11/2023 1:13 PM PST Approved by: Erich Mojica MD on 07/11/2023 1:13 PM PST Station ID: [id number]
== END 2023-07-11 08:28 | disposition home or self-care (01) ==
LOC: DI 08:27
PROVIDERS: ATTEND Physician Assistant
DX: K11.1 Hypertrophy of salivary gland (principal)

== ENCOUNTER 2023-10-14 05:50 | Outpatient (CLI) | payer MEDICAID | END 2023-10-14 23:59 | disposition critical access hospital (66) | LOC: EMS 05:50 | DX: R56.9 Unspecified convulsions (principal) | CPT/HCPCS: A0425; A0429; A0999 ==

== ENCOUNTER 2023-10-14 06:06 | Emergency (ER) | payer MEDICAID ==
--- NOTE | 2023-10-14 06:19 | ED Physician Documentation ---
PD HPI SEIZURE - Stated complaint Stated Complaint: SZ, ETOH - Chief complaint Chief Complaint: Neuro - History obtained from History obtained from: Patient, EMS - Additional information Additional information: Patient is a 23-year-old female with a history of seizure disorder presenting for evaluation of multiple seizures this evening. Patient has been drinking and has been under stress tonight which she states is a trigger for her seizures. Last reported seizure for her was 2 years ago before tonight. Patient got into an argument with her boyfriend and had been drinking at his home. Please were called and they did escort the patient home. Patient reportedly had 3 seizures at home and upon EMS arrival they noted 3 episodes of seizure-like activity that each lasted approximately 1 minute with a subsequent 5-minute postictal period. EMS did not administer any benzodiazepines.They did note that she has been hyperventilating through transport. Glucose was 110.Patient takes Oxcarbazepine 150 mg twice daily and has been compliant. She denies missing any doses. She usually takes her morning dose around 8:00 in the morning. Review of Systems Constitutional: denies: Fever Cardiac: denies: Chest pain / pressure Respiratory: denies: Dyspnea GI: denies: Abdominal Pain, Vomiting Neurologic: reports: Seizure. 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(s), Other : None HEENT: None Psych: Depression, Anxiety, Panic attacks Musculoskeletal: Chronic back pain Derm: None - Past Surgical History Past Surgical History: Yes Ortho: Carpal Tunnel surgery /MANUFACTURING ASSOCIATE: Dilation and currettage HEENT: Tonsil/Adenoidectomy - Present Medications Home Medications: Ambulatory Orders Medication Instructions Recorded Confirmed Albuterol 1 - 2 puffs PO Q4HR PRN 07/25/21 10/14/23 Chlorhexidine Gluconate [Peridex] 10 ml MM BID #118 ml 05/28/23 10/14/23 Ibuprofen [Motrin] 600 mg PO TID PRN #25 tab 05/28/23 10/14/23 OXcarbazepine [Trileptal] 150 mg PO DAILY 05/28/23 10/14/23 Sertraline HCl 100 mg PO DAILY 05/28/23 10/14/23 clindamycin HCL [Clindamycin HCl] 300 mg PO TID 7 Days #20 cap 05/28/23 10/14/23 LORazepam [Ativan] 0.5 mg PO PRN PRN 10/14/23 10/14/23 - Allergies Allergies/Adverse Reactions: Allergies Allergy/AdvReac Type Severity Reaction Status Date / Time Sulfa (Sulfonamide AdvReac Unknown Verified 10/14/23 06:34 Antibiotics) - Social History Does the pt smoke?: No Smoking Status: Never smoker Does the pt drink ETOH?: Yes Does the pt have substance abuse?: No - Immunizations Immunizations are current?: No Immunizations: TDAP >10years/unknown - POLST Patient has POLST: No PD ED PE NORMAL - General General: Alert and oriented X 3, No acute distress, Well developed/nourished - HEENT HEENT: Atraumatic, PERRL, EOMI, Moist mucous membranes, Pharynx benign - Neck Neck: Supple, no meningeal sign - Cardiac Cardiac: Strong equal pulses, Other (Tachycardic, regular rhythm) - Respiratory Respiratory: No respiratory distress, Clear bilaterally - Abdomen Abdomen: Normal bowel sounds, Soft, Non tender, Non distended - Derm Derm: Warm and dry - Extremities Extremities: No edema - Neuro Neuro: Alert and oriented X 3, No motor deficit, No sensory deficit, Normal speech Results - Vitals Vitals: Vital Signs - 24 hr 10/14/23 10/14/23 10/14/23 06:13 08:32 09:29 Temperature 37.0 C Heart Rate 109 H 107 H 107 H Respiratory 37 H 24 18 Rate Blood Pressure 135/95 H 126/60 131/76 H O2 Saturation 95 94 95 Oxygen O2 Source Room air - EKG (time done) 0630 EKG releavant findings:: EKG personally interpreted by author of this note. Relevant findings are: Rate 105, sinus tachycardia, no STEMI, QTc 448 - Labs Labs: Laboratory Tests 10/14/23 10/14/23 10/14/23 06:15 06:15 08:04 WBC 8.7 RBC 4.49 Hgb 13.5 Hct 39.4 MCV 87.8 MCH 30.1 MCHC 34.3 RDW 12.5 Plt Count 332 MPV 8.9 Neut # (Auto) 4.9 Lymph # (Auto) 2.9 Powell # (Auto) 0.4 Eos # (Auto) 0.4 Baso # (Auto) 0.1 Absolute Nucleated RBC 0.00 Nucleated RBC % 0.0 Sodium 138 Potassium 3.6 Chloride 105 Carbon Dioxide 21 Anion Gap 12.0 BUN 8 Creatinine 0.7 Estimated GFR (MDRD) 102 Glucose 115 H Calcium 9.7 Magnesium 1.5 L Total Bilirubin 0.3 AST 18 ALT 22 Alkaline Phosphatase 64 Total Protein 7.5 Albumin 4.3 Globulin 3.2 Albumin/Globulin Ratio 1.3 Lipase < 10 L Urine Color YELLOW Urine Clarity CLEAR Urine pH 6.0 Ur Specific Force 1.010 Urine Protein NEGATIVE Urine Glucose (UA) NEGATIVE Urine Ketones NEGATIVE Urine Occult Blood SMALL H Urine Nitrite NEGATIVE Urine Bilirubin NEGATIVE Urine Urobilinogen 0.2 (NORMAL) Ur Leukocyte Esterase NEGATIVE Urine RBC 6-10 H Urine WBC 0-3 Ur Squamous Epith Cells RARE Squamous Urine Bacteria Rare Ur Microscopic Review INDICATED Urine Culture Comments NOT INDICATED Urine HCG, Qual NEGATIVE Ethyl Alcohol 88.9 PD Medical Decision Making - ED course Complexity details: reviewed results, re-evaluated patient, d/w patient ED course: Patient is a 23-year-old female presenting for evaluation of multiple seizures. Patient reported a history of seizures. EMS witnessed 3 but did not give any Ativan or benzodiazepines. On arrival she is awake and alert with normal neuroexam. She reports that she gets the seizures in the settings of stress and alcohol use both of which occurred last night. EKG shows sinus tachycardia. CBC, chemistries were obtained and reviewed. Magnesium 1.5 which is being replaced. During evaluation patient had seizure-like episode but was quickly able to come out of it and asked nurse questions such as what medication she was receiving. Ativan had been ordered. She did receive the Ativan. On further history it appears that the seizures were diagnosed by psychiatrist and was told that these come on by emotional stress. Her parents were unaware of any seizure history. Therefore I suspect that these are nonepileptic seizures. Patient was counseled on needing to find ways to manage emotional and psychological stressors to avoid these episodes.She has just recently started seeing a therapist. Patient counseled to avoid alcohol or drug use. Counseled on need for close follow-up as well as concerning symptoms to return for. 0643 - Pt noted to be thrashing in the ED with seizure like activity. HR elevated but no desaturation. 2mg IV ativan ordered While nurse was administering the medication patient turned to her and asked what that was. Patient did not have any real postictal period and was able to converse with her parents shortly thereafter this episode. Parents are at the bedside and states that they are unaware of their daughter having any type of seizure disorder. 0704 - Patient tells me that she was diagnosed with seizures by a psychiatrist in [place] when she was admitted there. She has never seen a neurologist. She was told that these are brought on by emotional stress. Based on her account and history as well as what we witnessed I suspect that these are nonepileptic seizures. We have discussed that the treatment for this is primarily aimed at counseling and therapies to help manage stress, anxiety and panic attacks.Just started seeing a therapist last week and will be seeing this person once a month. She denies being suicidal. Departure - Departure Disposition: 01 Home, Self Care Clinical Impression: Seizure-like activity, Functional neurological symptom disorder with abnormal movement Condition: Stable Instructions: ED Seizure Recurrent Follow-Up: Silvia Ross PA [Provider Admit Priv/Credential] - Comments: You were evaluated for seizure-like activity. Based on the history that you relayed to us as well as what we witnessed I believe you are having nonepileptic seizures. These are brought on by emotional or psychological stressors. I would recommend close follow-up with your primary care doctor as well as with your therapist. Please continue to take your medications as prescribed. I would recommend avoiding substances such as alcohol or other drugs. Return to the emergency department with any worsening symptoms. Forms: PCP List Discharge Date/Time: 10/14/23 09:30
[2023-10-14 06:21] LABS: BASOPHILS # (AUTO) 0.1 10^3/uL (0.0-0.1); BASOPHILS % (AUTO) 0.8 %; EOSINOPHILS # (AUTO) 0.4 10^3/uL (0.0-0.7); EOSINOPHILS % (AUTO) 4.2 %; HCT - HEMATOCRIT 39.4 % (37.0-47.0); HGB - HEMOGLOBIN 13.5 g/dL (12.0-16.0); LYMPHOCYTES # (AUTO) 2.9 10^3/uL (1.5-3.5); LYMPHOCYTES % (AUTO) 33.6 %; MEAN CORPUSCULAR HEMOGLOBIN 30.1 pg (27.0-31.0); MEAN CORPUSCULAR HGB CONC 34.3 g/dL (32.0-36.0); MEAN CORPUSCULAR VOLUME 87.8 fL (81.0-99.0); MEAN PLATELET VOLUME 8.9 fL (7.9-10.8); MONOCYTES # (AUTO) 0.4 10^3/uL (0.0-1.0); MONOCYTES % (AUTO) 4.7 %; NEUTROPHILS # (AUTO) 4.9 10^3/uL (1.5-6.6); NEUTROPHILS % (AUTO) 56.5 %; PLT - PLATELET COUNT 332 10^3/uL (130-450); RED BLOOD COUNT 4.49 10^6/uL (4.20-5.40); RED CELL DISTRIBUTION WIDTH 12.5 % (12.0-15.0); WHITE BLOOD COUNT 8.7 x10^3/uL (4.8-10.8)
[2023-10-14] MEDS ORDERED: LORazepam 2 MG/ML VIAL ONE (06:43)
[2023-10-14 06:49] LABS: ALBUMIN 4.3 g/dL (3.2-5.5); ALBUMIN/GLOBULIN RATIO 1.3 (1.0-2.2); ALKALINE PHOSPHATASE 64 IU/L (42-121); ALT ALANINE AMINOTRANSFERASE 22 IU/L (10-60); AST ASPARTATE AMINOTRANSFERASE 18 IU/L (10-42); BILIRUBIN,TOTAL 0.3 mg/dL (0.2-1.0); BUN - BLOOD UREA NITROGEN 8 mg/dL (6-20); CALCIUM 9.7 mg/dL (8.5-10.3); CARBON DIOXIDE - CO2 21 mmol/L (21-32); CHLORIDE 105 mmol/L (101-111); CREATININE 0.7 mg/dL (0.6-1.3); ETOH - ETHANOL 88.9 mg/dL; GFR - MDRD 102 (>89); GLUCOSE 115 mg/dL (74-104); MAGNESIUM 1.5 mg/dL (1.7-2.3); POTASSIUM 3.6 mmol/L (3.5-4.5); SODIUM 138 mmol/L (135-145); TOTAL PROTEIN 7.5 g/dL (6.4-8.9)
[2023-10-14] MEDS: LORazepam 2 MG/ML VIAL IVP STA (06:49)
[2023-10-14] MEDS: SODIUM CHLORIDE 0.9% 1,000 ML IV STA (06:58)
[2023-10-14 07:10] LABS: LIPASE < 10 U/L (11-82)
[2023-10-14] MEDS: MAGNESIUM SULFATE 2 GRAM 2 GM/50 ML BAG IV ONE (07:16)
[2023-10-14] MEDS: carBAMazepine 200 MG TABLET PO ONE (07:30)
[2023-10-14 08:25] LABS: BILIRUBIN,URINE NEGATIVE (NEGATIVE); GLUCOSE, URINE (UA) NEGATIVE (NEGATIVE); KETONES,URINE (UA) NEGATIVE (NEGATIVE); LEUKOCYTE ESTERASE, URINE NEGATIVE (NEGATIVE); NITRITE,URINE NEGATIVE (NEGATIVE); OCCULT BLOOD,URINE SMALL (NEGATIVE); PROTEIN,URINE NEGATIVE (NEGATIVE); UROBILINOGEN,URINE 0.2 (NORMAL) E.U./dL (NORMAL)
[2023-10-14 08:27] LABS: CLARITY,URINE CLEAR (CLEAR); HCG UR QUAL NEGATIVE
[2023-10-14 08:34] LABS: WBC,URINE 0-3 /HPF (0-5)
[2023-10-14 08:35] LABS: BACTERIA,URINE Rare /HPF (None Seen); SQUAMOUS EPITHELIAL CELL,UR RARE Squamous (<= Few)
--- NOTE | 2023-10-14 09:19 | ED Physician Documentation ---
ED Addendum - Addendum Addendum: 10/14/23 09:18 The patient declined her oral medication. She is still feeling well. Intention was for discharge with instructions per Dr. Lopes. They are wishing to be discharged at this time. No further seizure-like activity. Disposition: The patient is discharged home in stable condition. Diagnoses: 1. Nonepileptic seizures 2. Seizure-like activity 3. Functional neurologic disorder
[2023-10-14 09:34] VITALS: BP 131/76; O2SAT 95
== END 2023-10-14 09:30 | disposition home or self-care (01) ==
LOC: EDUNIT# → ED 06:06
DX: R56.9 Unspecified convulsions (principal); F44.4 Conversion disorder with motor symptom or deficit
CPT/HCPCS: 36415; 80053; 81001; 81025; 82077; 83690; 83735; 85025; 93005; 96365; 96375; 99284; A9270; J2060; 81003; 87086

== ENCOUNTER 2023-10-14 18:46 | Outpatient (CLI) | payer MEDICAID | END 2023-10-14 23:59 | disposition short-term general hospital (02) | LOC: EMS 18:46 | DX: R56.9 Unspecified convulsions (principal) ==

== ENCOUNTER 2023-11-08 14:25 | Emergency (ER) | payer MEDICAID ==
[2023-11-08 14:40] VITALS: BP 140/90; O2SAT 96
--- NOTE | 2023-11-08 14:51 | ED Physician Documentation ---
History of Present Illness - Stated complaint Stated Complaint: HEART MONITOR NOT WORKING - Chief complaint Chief Complaint: Cardiac - History obtained from History obtained from: Patient - History of Present Illness Timing: Today Pain level max: 0 Pain level now: 0 - Additonal information Additional information: 23-year-old female had a cardiac event monitor placed yesterday at the [facility]. She states that it fell off today. She was not sure what to do, she states she called the [facility] and was told to come to the emergency department. Patient has no complaints. 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(s), Other : None HEENT: None Psych: Depression, Anxiety, Panic attacks Musculoskeletal: Chronic back pain Derm: None - Past Surgical History Past Surgical History: Yes Ortho: Carpal Tunnel surgery /WASTEWATER ANALYST LAB ANALYST: Dilation and currettage HEENT: Tonsil/Adenoidectomy - Present Medications Home Medications: Ambulatory Orders Medication Instructions Recorded Confirmed Albuterol 1 - 2 puffs PO Q4HR PRN 07/25/21 11/07/23 Ibuprofen [Motrin] 600 mg PO TID PRN #25 tab 05/28/23 11/07/23 OXcarbazepine [Trileptal] 150 mg PO DAILY 05/28/23 11/07/23 Sertraline HCl 100 mg PO DAILY 05/28/23 11/07/23 LORazepam [Ativan] 0.5 mg PO PRN PRN 10/14/23 11/07/23 - Allergies Allergies/Adverse Reactions: Allergies Allergy/AdvReac Type Severity Reaction Status Date / Time diphenhydramine Allergy Hives Verified 11/08/23 14:29 [From Benadryl] Sulfa (Sulfonamide AdvReac Unknown Verified 11/08/23 14:29 Antibiotics) - Social History Does the pt smoke?: No Smoking Status: Never smoker Does the pt drink ETOH?: Yes Does the pt have substance abuse?: No - Immunizations Immunizations are current?: No Immunizations: TDAP >10years/unknown - POLST Patient has POLST: No PD ED PE NORMAL - Vitals Vital signs reviewed: Yes - General General: Alert and oriented X 3, No acute distress - HEENT HEENT: Moist mucous membranes - Neck Neck: Supple, no meningeal sign - Respiratory Respiratory: No respiratory distress - Derm Derm: Warm and dry - Neuro Neuro: Alert and oriented X 3 Results - Vitals Vitals: Vital Signs - 24 hr 11/08/23 14:29 Temperature 36.8 C Heart Rate 81 Respiratory 16 Rate Blood Pressure 140/90 H O2 Saturation 96 Oxygen O2 Source Room air PD Medical Decision Making - ED course Complexity details: considered differential, d/w patient ED course: Per the lead cargoman's instructions the device was placed over the xiphoid process and extended up the sternum. Tegaderm was used to more securely hold the device. Skin-Prep was used prior to device placement. There appeared to be no complications at this time. Patient will follow-up with her doctor for further care. This document was made in part using voice recognition software. While efforts are made to proofread this document, sound alike and grammatical errors may occur. Departure - Departure Disposition: 01 Home, Self Care Clinical Impression: Encounter for medical screening examination Condition: Good Instructions: Event Monitor Follow-Up: Silvia Ross PA [Primary Care Provider] - Comments: Your cardiac event monitor was put back on your skin today. As we discussed you can use Tegaderm or tape to help hold the device in place. Please follow-up with your doctor for further care. Forms: PCP List Discharge Date/Time: 11/08/23 14:54
== END 2023-11-08 14:54 | disposition home or self-care (01) ==
LOC: ED 14:25
DX: T82.897A Other specified complication of cardiac prosthetic devices, implants and grafts, initial encounter (principal); I49.9 Cardiac arrhythmia, unspecified; J45.909 Unspecified asthma, uncomplicated
CPT/HCPCS: 99281; 99282